=== PATIENT | female | born 1960 | race Caucasian/White ===

== ENCOUNTER 2018-09-18 00:57 | Outpatient (CLI) | payer BC, SELFPAY ==
--- NOTE | 2018-09-18 10:00 | DI.MAMMO_ITS ---
SYMPTOMS/DIAGNOSIS: SCREENING, Z12.31 MAMMOGRAM: Mammograms were interpreted according to the usual protocol including computer analysis with CAD system, tomosynthesis and C view imaging. Comparison is made with prior examinations. Breast density C. No suspicious masses or microcalcifications are seen. The nodular density in the outer left breast appears stable. The skin and axilla are unremarkable. IMPRESSION: No evidence for malignancy. Yearly mammography is recommended. Category 2. MQSA ASSESSMENT OF FINDINGS: Negative with benign findings. Category 2. Patient will receive a letter notifying them of these results. Bi-RADS category C. The breasts are heterogeneously dense, which may obscure small masses.
== END 2018-09-18 01:17 ==
PROVIDERS: PCP Nurse Practitioner Family; Visit Provider Nurse Practitioner Family
DX: Z12.31 Encounter for screening mammogram for malignant neoplasm of breast (principal)
CPT/HCPCS: 77063; 77067

== ENCOUNTER 2019-01-20 06:18 | Day surgery (SDC) | payer BC, SELFPAY ==
--- NOTE | 2019-01-20 06:20 | W.COLOREPORT ---
Date of service: 01/20/19 Time of Service: 07:35 Colonoscopy Report Date of procedure: 01/20/19 Pre-op diagnosis general: Hx of polyps Post-op diagnosis procedure note: same Procedure: Colonoscopy with polypectomy Surgeon: Minnie Owens Anesthesia proc note operative: other (General/ ASA 2/Clay Cho, MARI) Estimated blood loss (mL): 3 Pathology: other (Transverse colon polyp x2, Ascending colon polyp x3) Complications: None Disposition: same day Indications: Mrs. Sanchez is a pleasant 58 year old female seen in the office for a screening colonoscopy. She has a history of polyps in the past. Risks, benefits and complications have been reviewed. Complications include but are not limited to bleeding, pain, perforation, missed small lesion/polyp, sore throat, aspiration and adverse reaction to the medications. Questions were entertained and answered to their satisfaction and they wished to proceed. No guarantees were given or implied. Prep: Miralax/Dulcolax Procedure Start Time: 07:35 Procedure End Time: 08:01 Retraction Time: 19 minutes Findings: Multiple sessile polyps, 4 were <10 mm in size. One was 10 mm Mild diverticulosis Procedure Description: After informed consent was obtained the patient was taken to the procedure room and placed in a left decubitous position. Monitors were applied and a time out was done. The patients name, date of , procedure, allergies to medications and metal in their body was reviewed. The patient was then sedated. Once sedated and comfortable a rectal exam was done. External exam was normal. Internal exam revealed a normal sphincter tone and no palpable masses. The scope was then introduced and retro-flexed. No internal hemorrhoids, masses or polyps were identified. The scope was then advanced to the cecum without difficulty. The TI and appendiceal orifice were identified. The prep was good. The scope was then slowly retracted over 19 minutes back into the rectum. Polyps were removed with cold forceps in the ascending colon x3 and the transverse colon x2. There was mild diverticulosis noted in the descending and sigmoid colon. The scope was removed and the patient was woken up and taken back to Same day surgery in stable condition. The patient tolerated the procedure well and there were no immediate complications. Follow up: The patient should follow up in 3-5 years unless they develop changes in bowel habits or other new gastrointestinal complaints.
--- NOTE | 2019-01-20 06:21 | W.PM.DSUDISC ---
Discharge Plan Disposition Patient Disposition: HOME Condition: Good Discharge Details Reason For Visit: Hx of polyps Attending Provider: Minnie Owens Primary Care Provider: Viri Cisneros Home Meds and New Rx's Prescriptions: Continued estradiol 1 mg tablet 1 mg PO DAILY RF: 0 acetaminophen [Tylenol Extra Strength] 500 MG tablet 1,000 mg PO Q6H PRN RF: 0 albuterol sulfate [ProAir HFA] 90 mcg/actuation HFA aerosol inhaler 1 - 2 inh Inhalation .Q4-6H PRN (Reason: shortness of breath or wheezing) Qty: 1 RF: 3 vit D3-folic [id number]-B12 2,000-800-0.32 unit-mcg-mg Tablet 1 tab PO DAILY RF: 0 Discontinued polyethylene glycol 3350 17 gram/dose powder 238 g PO ONCE Qty: 238 RF: 0 bisacodyl [Dulcolax (bisacodyl)] 5 mg tablet,delayed release (DR/EC) 5 mg PO ONCE Qty: 4 RF: 0 Discharge Instructions Instructions: Colonoscopy (DC), Diverticulosis (GEN), Colorectal Polyps (DC) Additional Instructions: Findings: 5 polyps Diverticulosis Follow up: 3-5 years Please call if you develop: fevers >101.5 Nausea or Vomiting Abdominal pain that is not transient DAY SURGERY UNIT POST ENDOSCOPY INSTRUCTIONS 1. Because there will be medication in your system for the next 24 hours, you may feel a little sleepy. Your coordination will be affected. Therefore: a. Do not drive or operate dangerous equipment for 24 hours. b. Do not drink alcohol beverages for 24 hours (not even beer). c. Plan to go home and rest for the day. 2. Generally there are no restrictions on your activity after a day or so has gone by, but you may feel a bit fatigued for a few days. 3 After you arrive home you may have a light meal and return to a normal diet as you can tolerate it without feeling sick to your stomach. 4. After surgery, you may feel pain or discomfort. This should be only transient, but if it persists please contact your doctor. 5. If there are any questions regarding the findings of your procedure, please feel free to contact your doctor. 6. If you are unable to contact your doctor with a problem, contact the hospital at [phone]. 7. Continue all your regular medications unless directed otherwise. I understand the above instructions and have no questions. Signature of Patient or Responsible Adult Escort Date/Time Name of Responsible Adult Escort Signature of Nurse Date/Time Activity:: Activity as Tolerated Diet:: High Fiber diet Discharge Orders Discharge Orders: Discharge Order (Routine); Ordered 01/20/19 Ordered By: Minnie Owens DS: Diagnosis Discharge Diagnosis (1) S/P colonoscopy: Status: Acute (2) Diverticulosis: Status: Acute (3) Hx of colonic polyps: Status: Acute
--- NOTE | 2019-01-20 06:23 | W.PM.HP.N ---
Date of service: 01/20/19 Time of Service: 06:24 Assessment and Plan Assessment and plan (1) Hx of colonic polyps: Status: Acute Assessment and plan: (1) History of colonic polyps: The patient is here for Colonoscopy pre-op. Her last screening was in 2012 and was remarkable for adenomatous polyps. She has no family history of colon cancer. She has not had any bowel habit changes. -Discussed colonoscopy bowel prep as well as the procedure. Discussed possible complications of the procedure to include bleeding, pain, perforation, missed small lesion/polyp, sore throat, aspiration and adverse reaction to the medications. Questions were answered to patient?s satisfaction. No guarantees were implied or given. P// Colonoscopy under sedation. History of Present Illness Narrative: 58 y/o female with history of asthma presents for colonoscopy screening pre-op. Her last screening was in 2012, which was remarkable for adenomatous polyps. She denies a family history of colon cancer. She denies any changes in bowel habits including bloody or black tarry stools, abdominal pain, diarrhea or constipation. She denies constitutional symptoms. She reports use of marijuana a few times a month. Denies use of other recreational or illegal drugs. She denies chest pain, palpitations, dyspnea or dyspnea with exertion. She participates in strength training 2 days/wk and Bar flexibility training 2 days/wk. She denies prior history or family history of adverse reactions or complications with anesthesia. She denies having any implanted metal in her body. There have been no changes in her health since she was seen in the office in November Review of Systems Constitutional Constitutional: Denies fever(s) Cardiovascular Cardiovascular: Denies chest pain, Denies chest pain at rest, Denies chest pain with activity, Denies rapid heart rate, Denies palpitations, Denies dyspnea and Denies dyspnea on exertion Respiratory Respiratory: Denies cough, Denies dyspnea and Denies dyspnea on exertion Gastrointestinal Gastrointestinal: Reports as per HPI Endocrine Endocrine: Denies palpitations [facility] Medical History Adenoma of large intestine (Inactive 06/12/12) next 2018 Anxiety (Resolved 08/03/11) Asthma Asthma (Chronic 05/22/13) Spirometry 2008, mild obstructive airway disease Prednisone 2013 History of nicotine dependence (Chronic) Quit 2014 Primary osteoarthritis of right knee (Chronic 05/31/16) [facility] Tobacco use disorder (Resolved) QUIT 2014 (1 PPD x 20 years= 20 PY); Zyban, hypnotism Surgical History Arthroscopy (Resolved 02/21/15) Dr Walker [facility] [place] R elbow Cholecystectomy (Resolved) Endometrial Biopsy (Resolved 07/25/15) S/P colonoscopy (Acute ~01/20/19) 2012- adenomatous polyp Tubal Ligation, Laparoscopic (Resolved) Family History Mother Hypertension Decreased due to brain aneurysm 44 y/o Father Heart disease due to heart issues 80s Cancer Throat cancer (smoker) Social History Smoking/Tobacco Use Status: Former Tobacco Use Quit Date: 03/11/14 Pack-years: 20 Second Hand Exposure: Yes Alcohol Intake: current Alcohol Intake frequency: a few times a week Alcohol type: hard liquor Drug use: Never Substance use type: does not use Caregiver/Support person: No Household members: spouse Number of Children: 3 Communication Needs: None Education Level: college Details: Associates degree 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 Sexually active: Yes Current gender identity: female What type of physical activity do you participate in: weight lifting and resistance training Duration: 45-60 minutes/day Frequency: 3-4 times per week Seatbelt use: always Helmet use: Yes Drive intox or ride w/intox pole truck driver: No Water heater temp set <120 deg: Yes Working smoke detector in home: Yes Fire extinguisher in home: Yes Carbon monox detector in home: Yes Firearms in home: No Do you feel safe at home: Yes Do you feel safe in your relationship?: Yes Meds Home Medications and Allergies Home Medications Medication Instructions Recorded Confirmed Type acetaminophen [Tylenol Extra 1,000 mg PO Q6H PRN tab-cap 02/09/15 01/15/19 History Strength] albuterol sulfate 90 mcg/actuation 1 - 2 inh INHALATION .Q4-6H PRN #1 09/08/18 01/15/19 Rx aerosol inhaler unit estradiol 1 mg tablet 1 mg PO DAILY 09/08/18 01/15/19 History Allergies Allergy/AdvReac Type Severity Reaction Status Date / Time formaldehyde Allergy Intermediate Unverified 01/15/19 15:05 Exam Const General: cooperative, healthy appearing, comfortable and no acute distress Orientation: alert and oriented x3 HENMT Head: normocephalic and atraumatic Resp Effort & Inspection: normal respiratory effort Auscultation: clear to auscultation bilaterally Cardio Rate: regular rate Rhythm: regular rhythm Heart Sounds: no gallops, no murmurs and no rubs
[2019-01-20 06:36] VITALS: BP 111/62; PULSE 64; RESP 16; TEMP 36.5; O2SAT 98
[2019-01-20] MEDS: Lactated Ringers 1,000 ML 80 ML IV (06:45)
--- NOTE | 2019-01-20 07:40 | BOWEL_PTH ---
PATIENT: Melia Sanchez LOC: [facility] U#:[id number] AGE/SX: 58/F ROOM: RE01/20/[address]: Minnie Owens MD : 1960 BED: DIS: 01/20/2019 SPEC #: [id number] RECD: 01/20/19 12:23 STATUS: LUIS FELIPE REQ #: [id number] BRENDA: 01/20/19 07:[address]: Minnie Owens DEPT: Surgical Specimen RECD BY: Dinorah Bob ENTERED: 01/20/19 12:24 SP TYPE: Bowel OTHR DR: Viri Cisneros APRN Tissues: 1 - BIOPSY BOWEL 2 - BIOPSY BOWEL Procedures: GROSS AND MICRO LEVEL 4 Comments: [id number]
[2019-01-20 08:25] VITALS: BP 125/72; PULSE 62; RESP 16; TEMP 36; O2SAT 99
== END 2019-01-20 09:10 | disposition home or self-care (01) ==
PROVIDERS: PCP Nurse Practitioner Family; Visit Provider Surgery
PROC: 0DJD8ZZ Inspection of Lower Intestinal Tract, Via Natural or Artificial Opening Endoscopic (ICD-10-PCS; CPT 45378; principal; 2019-01-20 07:30)
DX: Z12.11 Encounter for screening for malignant neoplasm of colon (principal); Z86.010 Personal history of colon polyps; D12.2 Benign neoplasm of ascending colon; D12.3 Benign neoplasm of transverse colon; K57.30 Diverticulosis of large intestine without perforation or abscess without bleeding
CPT/HCPCS: 45380; 88305; NC; J2250; J3010

== ENCOUNTER 2019-02-18 14:01 | Emergency (ER) | payer BC, SELFPAY ==
[2019-02-18] VITALS (18 sets, daily range): BP systolic 114–149; BP diastolic 65–92; PULSE 57–76; RESP 10–24; TEMP 36.7; O2SAT 100
--- NOTE | 2019-02-18 14:24 | W.ED.GENAD ---
Discharge Plan Disposition Patient Disposition: HOME Condition: Good Discharge Details Chief Complaint: Palpitatns Clinical Impression: Palpitation Primary Care Provider: Viri Cisneros ED Provider: Merle Loving Home Meds and New Rx's Prescriptions: Continued estradiol 1 mg tablet 1 mg PO DAILY RF: 0 albuterol sulfate [ProAir HFA] 90 mcg/actuation HFA aerosol inhaler 1 - 2 inh Inhalation .Q4-6H PRN (Reason: shortness of breath or wheezing) Qty: 1 RF: 3 Discharge Instructions Instructions: Palpitations (ED) Additional Instructions: Drink plenty of fluids and get plenty of rest. Call your primary care doctor tomorrow to schedule a follow-up appointment for reevaluation within the next week. Your doctor can consider ordering an outpatient stress test if your symptoms persist. Your primary care doctor could also consider checking a vitamin B12 and/or TSH regarding your recent fatigue. Return to the emergency department if you develop any worsening or concerning symptoms. Discharge Data Discharge Date/Time-TO BE ENTERED AT DEPARTURE: 02/18/19 18:55 Discharge Physician: Merle Loving Medical Decision Making 1415 -- 59-year-old female with a history of asthma and anxiety presents with an episode of shortness of breath this morning followed by profound fatigue and then an episode of feeling jittery for approximately 30 minutes which then resolved. Patient denies any symptoms at present other than feeling fatigued. EKG on arrival notes a rate of 64, sinus with questionable less than [address] depression in V3 through V6. No acute ST elevation. Vitals within normal limits. Patient appears comfortable and nontoxic. She appears pleasant and talkative. Vitals within normal limits. Heart rate normal on monitor during evaluation. Differential diagnosis includes arrhythmia, ACS, dehydration, anxiety. Will place an IV, bolus IV fluids, screening labs, chest x-ray. 1540 --labs reviewed and unremarkable. Normal white blood cell count, electrolytes. Negative d-dimer and troponin. Chest x-ray negative. 1625 --patient states she feels much better. Denies any symptoms at present. We will plan for repeat troponin and ekg for 1730. 1800 --repeat EKG notes resolution of this questionable less than [address] depression, rate of 57, sinus with no acute ST-T wave ischemic changes. Second troponin negative. Patient feels much better and feels good to go home. Pt asymptomatic. She was advised to follow-up with her primary care doctor for reevaluation. Usual and customary return precautions given prior to discharge. Medical Records Medical records reviewed: Yes I reviewed the patient's medical records. Imaging Data Radiologic Study: Radiologist's impression: XR CHEST 2V PA LATERAL CLINICAL HISTORY: palpitations, r/o acute disease. TECHNIQUE: 2D digital imaging was performed. COMPARISON: No exams were available for comparison FINDINGS: LUNGS: Clear. No pleural abnormality seen. HEART: Normal. MEDIASTINUM: Normal. OTHER FINDINGS:Normal. IMPRESSION: No acute pulmonary findings. Lab Data Lab results reviewed: Yes I reviewed the patient's lab results. Labs: Laboratory Tests Range/Units 02/18/19 02/18/19 02/18/19 14:25 14:25 14:25 WBC (4.4-10.8) k/cumm 7.47 RBC (4.00-5.20) m/cumm 4.99 Hgb (12.0-15.5) g/dL 15.2 Hct (36.0-46.0) % 45.0 MCV (80-95) fL 90.2 MCH (27.0-33.0) pg 30.5 MCHC (32.0-36.0) g/dL 33.8 RDW (11.7-14.6) % 13.4 Plt Count (130-400) x1000/uL 295 MPV (8.0-11.0) fL 9.1 Immature Gran % 0.0 Neutrophils % 43.1 Lymphocytes % 41.1 Monocytes % 10.7 Eosinophils % 4.6 Basophils % 0.5 Absolute Neutrophils (1.2-6.7) k/cumm 3.22 Absolute Lymphocytes (1.2-3.4) k/cumm 3.07 Absolute Monocytes (0.11-0.7) k/cumm 0.80 H Absolute Eosinophils (0.0-0.7) k/cumm 0.34 Absolute Basophils (0.0-0.2) k/cumm 0.04 D-Dimer (<500) ng/mlFEU 316 Sodium (136-145) mmol/L 140 Potassium (3.5-5.1) mmol/L 3.4 L Chloride (98-107) mmol/L 102 Carbon Dioxide (21.0-32.0) mmol/L 28.2 Anion Gap (3-11) mmol/L 9.8 BUN (7-18) mg/dL 12 Creatinine (0.55-1.02) mg/dL 0.97 Estimated GFR/1.73 m2 (mL/min/1.73m2) 58.98 Glucose (74-106) mg/dL 114 H Calcium (8.5-10.1) mg/dL 9.4 Magnesium (1.8-2.4) mg/dL Total Bilirubin (0.2-1.0) mg/dL 0.4 AST (15-37) U/L 20 ALT (14-59) U/L 29 Alkaline Phosphatase (46-116) U/L 58 Troponin I (<0.06) ng/Ml Total Protein (6.4-8.2) g/dL 8.3 H Albumin (3.4-5.0) g/dL 4.3 Urine Color (Yellow) Urine Clarity (Clear) Urine pH (5-8) Ur Specific [place] (1.005-1.025) Urine Protein (Negative) mg/dL Urine Ketones (Negative) mg/dL Urine Blood (Negative) Urine Nitrite (Negative) Urine Bilirubin (Negative) Urine Urobilinogen (Up TO 0.2) EU/dL Ur Leukocyte Esterase (Negative) Urine Glucose (Negative) mg/dL Range/Units 02/18/19 02/18/19 02/18/19 14:25 14:25 15:40 WBC (4.4-10.8) k/cumm RBC (4.00-5.20) m/cumm Hgb (12.0-15.5) g/dL Hct (36.0-46.0) % MCV (80-95) fL MCH (27.0-33.0) pg MCHC (32.0-36.0) g/dL RDW (11.7-14.6) % Plt Count (130-400) x1000/uL MPV (8.0-11.0) fL Immature Gran % Neutrophils % Lymphocytes % Monocytes % Eosinophils % Basophils % Absolute Neutrophils (1.2-6.7) k/cumm Absolute Lymphocytes (1.2-3.4) k/cumm Absolute Monocytes (0.11-0.7) k/cumm Absolute Eosinophils (0.0-0.7) k/cumm Absolute Basophils (0.0-0.2) k/cumm D-Dimer (<500) ng/mlFEU Sodium (136-145) mmol/L Potassium (3.5-5.1) mmol/L Chloride (98-107) mmol/L Carbon Dioxide (21.0-32.0) mmol/L Anion Gap (3-11) mmol/L BUN (7-18) mg/dL Creatinine (0.55-1.02) mg/dL Estimated GFR/1.73 m2 (mL/min/1.73m2) Glucose (74-106) mg/dL Calcium (8.5-10.1) mg/dL Magnesium (1.8-2.4) mg/dL 2.1 Total Bilirubin (0.2-1.0) mg/dL AST (15-37) U/L ALT (14-59) U/L Alkaline Phosphatase (46-116) U/L Troponin I (<0.06) ng/Ml < 0.05 Total Protein (6.4-8.2) g/dL Albumin (3.4-5.0) g/dL Urine Color (Yellow) Yellow Urine Clarity (Clear) Clear Urine pH (5-8) 6.0 Ur Specific [place] (1.005-1.025) 1.010 Urine Protein (Negative) mg/dL Negative Urine Ketones (Negative) mg/dL Negative Urine Blood (Negative) Negative Urine Nitrite (Negative) Negative Urine Bilirubin (Negative) Negative Urine Urobilinogen (Up TO 0.2) EU/dL 0.2 Ur Leukocyte Esterase (Negative) Negative Urine Glucose (Negative) mg/dL Negative Range/Units 02/18/19 17:25 WBC (4.4-10.8) k/cumm RBC (4.00-5.20) m/cumm Hgb (12.0-15.5) g/dL Hct (36.0-46.0) % MCV (80-95) fL MCH (27.0-33.0) pg MCHC (32.0-36.0) g/dL RDW (11.7-14.6) % Plt Count (130-400) x1000/uL MPV (8.0-11.0) fL Immature Gran % Neutrophils % Lymphocytes % Monocytes % Eosinophils % Basophils % Absolute Neutrophils (1.2-6.7) k/cumm Absolute Lymphocytes (1.2-3.4) k/cumm Absolute Monocytes (0.11-0.7) k/cumm Absolute Eosinophils (0.0-0.7) k/cumm Absolute Basophils (0.0-0.2) k/cumm D-Dimer (<500) ng/mlFEU Sodium (136-145) mmol/L Potassium (3.5-5.1) mmol/L Chloride (98-107) mmol/L Carbon Dioxide (21.0-32.0) mmol/L Anion Gap (3-11) mmol/L BUN (7-18) mg/dL Creatinine (0.55-1.02) mg/dL Estimated GFR/1.73 m2 (mL/min/1.73m2) Glucose (74-106) mg/dL Calcium (8.5-10.1) mg/dL Magnesium (1.8-2.4) mg/dL Total Bilirubin (0.2-1.0) mg/dL AST (15-37) U/L ALT (14-59) U/L Alkaline Phosphatase (46-116) U/L Troponin I (<0.06) ng/Ml < 0.05 Total Protein (6.4-8.2) g/dL Albumin (3.4-5.0) g/dL Urine Color (Yellow) Urine Clarity (Clear) Urine pH (5-8) Ur Specific [place] (1.005-1.025) Urine Protein (Negative) mg/dL Urine Ketones (Negative) mg/dL Urine Blood (Negative) Urine Nitrite (Negative) Urine Bilirubin (Negative) Urine Urobilinogen (Up TO 0.2) EU/dL Ur Leukocyte Esterase (Negative) Urine Glucose (Negative) mg/dL ECG Data Attestation: I personally reviewed and interpreted this ECG (s) as follows: Interpretation: #1 --Rate of 64, sinus, questionable/subtle less than [address] depression noted in V4 through V6. No acute ST elevation. SD 118. QTc 413. QRS 104. #2 --Rate of 57, sinus, no acute ST elevation or depression. SD 132. QTc 421. QRS 102. HPI General Mode of arrival: ambulatory. Date/Time Provider Initiated Documentation: 02/18/19 14:05. Limitations to Documentation: no limitations. Information obtained by: patient. HPI Narrative: Patient is a 59-year-old female with a history of asthma and anxiety presents with an episode of shortness of breath followed by fatigue and then a feeling of jitteriness at started since this morning. Patient states she went to the gym to start working out and shortly after became short of breath. She left the gym and went home and used her inhaler and had improvement of her shortness of breath. She states after this episode she felt profoundly fatigued and generalized weakness. She states that she then had a feeling of jitteriness that lasted approximately 30 minutes. She states the symptoms are now mainly resolved except for feeling fatigued. She states she drank 2 cups of coffee and ate 1 muffin and drank 16 ounces of water today. She states she normally has this amount of coffee daily but usually eats more around this time. She now states that she has felt generalized weakness and fatigue for the past few weeks. She states she has not been sleeping well but she is not sure why. She states her appetite has been normal. She denies any known fever, vomiting, diarrhea, chest pain, abdominal pain, urinary symptoms. Related Data Home Medications Medication Instructions Recorded Confirmed albuterol sulfate 90 mcg/actuation 1 - 2 inh INHALATION .Q4-6H PRN #1 09/08/18 02/18/19 aerosol inhaler unit estradiol 1 mg tablet 1 mg PO DAILY 09/08/18 02/18/19 Previous Rx's Medication Instructions Recorded albuterol sulfate 90 mcg/actuation 1 - 2 inh INHALATION .Q4-6H PRN #1 09/08/18 aerosol inhaler unit Allergies Allergy/AdvReac Type Severity Reaction Status Date / Time formaldehyde Allergy Intermediate Unverified 02/19/19 10:37 General Stated Complaint: Palpitatns ANNABELLA: 2 Review of Systems All systems reviewed & are unremarkable except as noted in HPI and below Constitutional Constitutional: Reports as per HPI, Denies chills, Reports fatigue and Denies fever(s) Eyes Eyes: Denies blurry vision ENT Ears, Nose, Mouth, and Throat: Denies dizziness, Denies sore throat and Denies throat swelling Cardiovascular Cardiovascular: Denies chest pain and Reports dyspnea Respiratory Respiratory: Denies cough and Reports dyspnea Gastrointestinal Gastrointestinal: Denies abdominal pain, Denies diarrhea and Denies vomiting Genitourinary Genitourinary: Denies hematuria and Denies dysuria Musculoskeletal Musculoskeletal: Denies back pain and Denies numbness Integumentary/Breasts Skin/Breast: Denies lesions and Denies rash Neurologic Neurologic: Denies dizziness, Denies focal weakness and Denies numbness Endocrine Endocrine: Reports fatigue Allergic/Immunologic Allergic/Immunologic: Denies throat swelling [facility] Medical History Adenoma of large intestine (Inactive 06/12/12) next 2018 Anxiety (Resolved 08/03/11) Asthma Asthma (Chronic 05/22/13) Spirometry 2008, mild obstructive airway disease Prednisone 2013 Diverticulosis (Acute) History of nicotine dependence (Chronic) Quit 2014 Hx of contraceptive use (Acute) mirena Primary osteoarthritis of right knee (Chronic 05/31/16) [facility] Tobacco use disorder (Resolved) QUIT 2014 (1 PPD x 20 years= 20 PY); Zsangeetha, hypnotism Surgical History Arthroscopy (Resolved 02/21/15) Dr [place] [facility] Cholecystectomy (Resolved) Endometrial Biopsy (Resolved 07/25/15) S/P colonoscopy (Acute ~01/20/19) 2012- adenomatous polyp Tubal Ligation, Laparoscopic (Resolved) Family History Mother Hypertension Decreased due to brain aneurysm 44 y/o Father Heart disease due to heart issues 80s Cancer Throat cancer (smoker) Social History Smoking/Tobacco Use Status: Former Tobacco Use Quit Date: 03/11/14 Pack-years: 20 Second Hand Exposure: Yes Alcohol Intake: current Alcohol Intake frequency: a few times a week Alcohol type: hard liquor Drug use: Occasionally Substance use type: marijuana Details: alcohol: t-2, one drink. 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 Water heater temp set <120 deg: Yes Working smoke detector in home: Yes Fire extinguisher in home: Yes Carbon monox detector in home: Yes Firearms in home: No Do you feel safe at home: Yes Do you feel safe in your relationship?: Yes Exam Const General: cooperative, healthy appearing and no acute distress HENMT Head: normal to inspection Face and sinus: normal facial exam Eyes General: appearance normal, both eyes and all related structures Pupils: PERRL EOM: EOM intact bilaterally Neck Neck: normal visual inspection and No submandibular swelling Lymphatic: no lymphadenopathy noted Chest Chest: normal inspection of the chest and no tenderness Resp Effort & Inspection: normal respiratory effort and able to speak in complete sentences Auscultation: clear to auscultation bilaterally Cardio Rate: regular rate Rhythm: regular rhythm GI Inspection: normal to inspection Palpation: soft, not firm, not rigid and nontender Auscultation: normal bowel sounds Skin General skin exam: no rashes or lesions noted Neuro General: alert, awake and oriented x3 Cranial Nerves: CN's II-XI intact bilaterally Cognition: normal cognition Speech: speech normal Motor: muscle tone normal throughout and strength 5/5 throughout Sensory Exam: no sensory deficits noted Extrem General: normal to inspection, full ROM, normal capillary refill, no calf tenderness bilaterally and no edema Psych Appearance: grossly normal Mental Status: mental status grossly normal Speech and Movement: speech and movement normal Affect: normal affect Course Vital Signs Vital signs: Vital Signs Temperature 98.1 F 02/18/19 14:04 Pulse 76 02/18/19 14:04 Respiratory Rate 21 02/18/19 14:04 Blood Pressure 149/72 H 02/18/19 14:04 Pulse Oximetry 100 02/18/19 14:04 Temperature 98.1 F 02/18/19 14:04 Temperature Source Skin 02/18/19 14:04 Pulse 76 02/18/19 14:04 Respiratory Rate 21 02/18/19 14:04 Respiratory Effort 02/18/19 14:21 Blood Pressure 149/72 H 02/18/19 14:04 Blood Pressure Position Sitting 02/18/19 14:04 Pulse Oximetry 100 02/18/19 14:04 Oxygen Delivery Method Room Air 02/18/19 14:04 Oxygen Flow Rate 0 02/18/19 14:04 Pain Level 0 02/18/19 14:04
[2019-02-18 14:35] LABS: Absolute Basophil Count 0.04 k/cumm (0.0-0.2); Absolute Eosinophil Count 0.34 k/cumm (0.0-0.7); Absolute Lymphocyte Count 3.07 k/cumm (1.2-3.4); Absolute Neutrophil Count 3.22 k/cumm (1.2-6.7); Basophils % 0.5; Eosinophils % 4.6; HGB 15.2 g/dL (12.0-15.5); Lymphocytes % 41.1; Mean Corp. HGB Concentration 33.8 g/dL (32.0-36.0); Mean Corpuscular Hemoglobin 30.5 pg (27.0-33.0); Mean Corpuscular Volume 90.2 fL (80-95); Mean Platelet Volume 9.1 fL (8.0-11.0); Monocytes % 10.7; Neutrophils % 43.1; Platelet Count 295 x1000/uL (130-400); RBC 4.99 m/cumm (4.00-5.20); RBC Distribution Width 13.4 % (11.7-14.6); White Blood Cell Count 7.47 k/cumm (4.4-10.8)
[2019-02-18] MEDS: Normal Saline 1,000 ML 1000 ML IV (14:37)
[2019-02-18 14:51] LABS: ALT 29 U/L (14-59); AST 20 U/L (15-37); Albumin 4.3 g/dL (3.4-5.0); Alkaline Phosphatase 58 U/L (46-116); Anion Gap 9.8 mmol/L (3-11); BUN 12 mg/dL (7-18); Bilirubin, Total 0.4 mg/dL (0.2-1.0); CO2 28.2 mmol/L (21.0-32.0); CREATININE 0.97 mg/dL (0.55-1.02); Calcium 9.4 mg/dL (8.5-10.1); Chloride 102 mmol/L (98-107); Estimated GFR 58.98 (mL/min/1.73m2); Glucose 114 mg/dL (74-106); Magnesium 2.1 mg/dL (1.8-2.4); Potassium 3.4 mmol/L (3.5-5.1); Sodium 140 mmol/L (136-145); Total Protein 8.3 g/dL (6.4-8.2)
[2019-02-18 14:52] LABS: Troponin I < 0.05 ng/Ml (<0.06)
--- NOTE | 2019-02-18 15:04 | DI.RAD_ITS ---
EXAM: XR CHEST 2V PA LATERAL CLINICAL HISTORY: palpitations, r/o acute disease. TECHNIQUE: 2D digital imaging was performed. COMPARISON: No exams were available for comparison FINDINGS: LUNGS: Clear. No pleural abnormality seen. HEART: Normal. MEDIASTINUM: Normal. OTHER FINDINGS:Normal. IMPRESSION: No acute pulmonary findings.
[2019-02-18 15:16] LABS: D-Dimer 316 ng/mlFEU (<500)
[2019-02-18 16:00] LABS: Bilirubin Negative (Negative); Blood Negative (Negative); Clarity Clear (Clear); Glucose Negative (Negative); Ketones Negative (Negative); Leukocyte Esterase Negative (Negative); Nitrite Negative (Negative); Urobilinogen 0.2 EU/dL (Up TO 0.2)
[2019-02-18 17:53] LABS: Troponin I < 0.05 ng/Ml (<0.06)
== END 2019-02-18 18:55 | disposition home or self-care (01) ==
PROVIDERS: Emergency Provider Physician Assistant; PCP Nurse Practitioner Family
DX: R00.2 Palpitations (principal); R06.02 Shortness of breath; R53.83 Other fatigue
CPT/HCPCS: 36415; 80053; 93005; 96360; 96361; 99285; 71046; 81003; 83735; 84484; 85025; 85379; 93010

== ENCOUNTER 2019-02-26 00:22 | Outpatient (CLI) | payer BC, SELFPAY ==
--- NOTE | 2019-02-26 08:31 | ETT_ITS ---
APPROVED REPORT Exam: Exercise Treadmill Patient Location: Out-Patient Room/Bed: Stress Nurse: Georgia Clarke RN BMI: 27.56 Baseline Rhythm: Sinus Bradycardia Indications: Last week patient was at exercise class when she became very SOB, left class and went ho me to use her Albuteral inhaler. She states she felt very tired the rest of that day and also felt ve ry tremulous inside from head to toe. She reports having 1 mild similar episode since. She reports mi ld SOB upon arrival to testing today. Medical History Medical History: Anxiety Cardiac Medications: None, Allergies: Formaldehyde Cardiac Risk Factors: FHX of CAD, Asthma Previous Cardiac Procedures: None Pretest Chest Pain Characteristics: Slight Shortness of Breath Exercise History: Physically active Physical Disabilities: None Lung Sounds: Clear to auscultation Heart Sounds: Regular Stress Test Details Test: Exercise stress testing was performed using a Blake protocol. Rest Stress HR Max Heart Rate (APMHR): 162 bpm Resting HR Supine: 58 bpm Target HR (85% APMHR): 137 bpm Resting HR Standin bpm Max HR Achieved: 158 bpm % of APMHR: 97 HR response to stress: Normal HR response to stress BP Resting BP Supine: 120/68 mmHg Resting BP Standin/70 mmHg Max BP: 160/84 mmHg BP response to stress: Normal blood pressure response to stress. ECG Resting ECG: Sinus Bradycardia ST Change: none Stress ECG: Sinus Tachycardia ST Change: Normal Arrhythmia: none Recovery ECG: Sinus Rhythm Recovery ST Change: none Clinical Reason for Termination: Fatigue Stress Symptoms: None Exercise duration: 10 min24 sec Highest Stage Achieved: Stage 4: 4.2 mph at 16% grade. Exercise capacity: 12.45 METs Functional Capacity: Average Capacity Stress ECG Conclusion 1. Patient exercised for 10 minutes and 24 seconds (12.45 METS) 2. Exercise was stopped due to fatigue. 3. Rate-pressure product was 25,000. 4. There was no evidence of ischemia on ECG during this level of stress. 5. The Mckeon Score (10) estimates an annual cardiovascular mortality of 0% and a five year survival of 96%. Using the Mckeon Score there is a low probability of any angiographic coronary disease. Protocol Used: Blake Protocol Stress Test Summary STAGE Time (mins) Speed (mph) Grade (%) HR BP SYMPTOMS METS Supine 58 Standing 72 1 3 1.7 10 96 4.6 2 6 2.5 12 113 7 3 9 3.4 14 138 10.2 4 12 4.2 16 12.9 5 15 5.0 18 17.2 1 min recovery 129 3 min recovery 99 6 min recovery 83 9 min recovery 81
[2019-02-26 10:57] LABS: Calculated LDL 200 mg/dL; Cholesterol 280 mg/dL (<200); HDL Cholesterol 64 mg/dL (40-60); Triglyceride 83 mg/dL (<150)
[2019-02-26 14:06] LABS: TSH (W/Ref FT4) 4.99 uIU/mL (0.36-3.74)
[2019-02-27 11:42] LABS: Hepatitis C Ab w Rflx HCV PCR Negative (Negative)
[2019-02-27 11:43] LABS: HIV-1/2 Ag & Ab Screen Negative (Negative)
== END 2019-02-26 00:42 ==
PROVIDERS: Nurse Practitioner Family; PCP Nurse Practitioner Adult Health; Visit Provider Nurse Practitioner Adult Health
DX: R06.02 Shortness of breath (principal); E78.5 Hyperlipidemia, unspecified; Z82.49 Family history of ischemic heart disease and other diseases of the circulatory system; Z11.4 Encounter for screening for human immunodeficiency virus [HIV]; Z11.59 Encounter for screening for other viral diseases
CPT/HCPCS: 36415; 80061; 86803; 87389; 84439; 84443; 93017

== ENCOUNTER 2019-03-05 00:38 | Outpatient (CLI) | payer BC, SELFPAY ==
--- NOTE | 2019-03-05 16:06 | DI.CTLCSR_ITS ---
EXAM: CT CHEST LUNG CANCER SCREEN CLINICAL HISTORY: SCREENING FOR LUNG CANCER Z12.2, Z87.891 PERS HX NICOTINE DEPENDENCE TECHNIQUE: Imaging protocol: Axial computed tomography images were obtained and coronal and sagittal reformatted images were created and reviewed. CONTRAST MATERIAL: Intravenous: Omnipaque 350 Contrast volume:0 mL contrast route:IV - Oral: No COMPARISON: No exams were available for comparison FINDINGS: Tracheobronchial tree: Patent where visualized. Mediastinum and [place]: No dominant adenopathy or fluid collection. Pulmonary parenchyma: No consolidation or dominant measurable mass. No architectural distortion. Pleura: No effusion or pneumothorax. Heart/Aorta: Atherosclerosis. Aneurysm. The heart is not dilated. Mild coronary artery calcificatio n. No pericardial effusion. Upper abdomen: Status post cholecystectomy. Lymph nodes: Within normal limits. Bones: Degenerative changes present. IMPRESSION: No pulmonary nodules. Lung RADS Cat 1 - Negative: No nodules and definitely benign nodules DATA REPOSITORY: All CT scans at this facility are submitted to the National Radiology Data Registry (NRDR) Dose Index Registry (DIR) with the [employer] (ACR). RADIATION OPTIMIZATION: All CT scans at this facility use at least one of these dose optimization te chniques: automated exposure control; mA and/or kV adjustment per patient size (includes targeted exa ms where dose is matched to clinical indication); or iterative reconstruction.
== END 2019-03-05 00:58 ==
PROVIDERS: PCP Nurse Practitioner Adult Health; Visit Provider Nurse Practitioner Adult Health
DX: Z12.2 Encounter for screening for malignant neoplasm of respiratory organs (principal); Z87.891 Personal history of nicotine dependence
CPT/HCPCS: G0297

== ENCOUNTER 2019-08-31 15:04 | Outpatient (CLI) | payer BC, SELFPAY ==
--- NOTE | 2019-08-31 14:30 | DI.RAD_ITS ---
EXAM: XR HIP RT COMPLETE AP PELVIS INDICATION: RIGHT HIP PAIN. COMPARISON: No exams were available for comparison TECHNIQUE: 2D digital imaging was performed. FINDINGS: Mild degenerative changes are seen in the right hip with joint space narrowing and subchondral sclero sis. The left hip is well maintained. The bones are intact and normally mineralized. The soft tiss ues are unremarkable. There is an intrauterine device in the pelvis. Surgical clips are seen in the right pelvis. IMPRESSION: Mild degenerative changes of the right hip. DATA REPOSITORY: RADIATION DOSE DELIVERED:
== END 2019-08-31 15:24 ==
PROVIDERS: PCP Nurse Practitioner Adult Health; Referring Provider Nurse Practitioner Adult Health; Visit Provider Student in an Organized Health Care Education/Training Program
DX: M16.11 Unilateral primary osteoarthritis, right hip
CPT/HCPCS: 73502

== ENCOUNTER 2019-09-10 00:33 | Outpatient (CLI) | payer BC, SELFPAY ==
--- NOTE | 2019-09-10 08:00 | DI.RAD_ITS ---
EXAM: RF JOINT INJECTION FLUORO GUID CLINICAL HISTORY: R HIP INJ UNDER FLUORO, RT HIP PAIN, M25.551 TECHNIQUE: 2D and realtime digital imaging was performed. CONTRAST MATERIAL: Water soluble contrast was administered. COMPARISON: No exams were available for comparison FINDINGS: Fluoroscopy was provided for Dr. Porter during the performance of a right hip injection. Please r efer to the procedure report for complete details. Fluoro time: 7 seconds IMPRESSION:
--- NOTE | 2019-09-10 13:35 | W.PROCNOTE ---
Date of service: 09/10/19 Time of Service: 13:35 Procedure Note Date of procedure: 09/10/19 Procedure: Right Hip Injection with Fluoroscopic Guidance Surgeon/Proceduralist/Physician: Damien Porter Procedure Diagnosis: Right Hip Femoroacetabular Impingement Procedure Indications: Melia has had persistent pain of the RIGHT hip and groin. Noninvasive measures have been tried. To serve as both diagnostic and therapeutic, an injection under fluoroscopy was recommended. I had discussed the risks of the procedure and the patient elected to proceed. Procedure Description: Melia was greeted in the flouroscopy room. The correct side was identified and the consent was reviewed with the patient and signed. The patient was then placed in the supine position on the fluoroscopy table. The RIGHT hip was then prepped with Chloraprep. The anterolateral injection starting point was identiifed by bony landmarks and fluoroscopy. The skin and soft tissue in the tract of the injection was anesthetized with 1% Lidocaine. A spinal needle was then inserted deep into the hip joint at the level of the lateral femoral neck under fluoroscopic guidance. A small amount of Omnipaque solution was injected to confirm intraarticular placement. Once confirmed, the hip was injected with 6cc of 0.5% Bupivicaine and 80mg of Depo-Medrol. A bandaid was placed on the injection site. The patient tolerated the procedure well and noted improvement in pre-injection pain.
[2019-09-10] MEDS: Omnipaque 300 MG/ML 10 ML BTL IJ (14:34)
[2019-09-10] MEDS: Bupivacaine 0.5% Pres-Free 10 ML VIAL 6 ML IJ (14:34)
[2019-09-10] MEDS: methylPREDNISolone ACETATE 80 MG/ML VIAL IM (14:35)
== END 2019-09-10 00:53 ==
PROVIDERS: PCP Nurse Practitioner Adult Health; Visit Provider Student in an Organized Health Care Education/Training Program
DX: M25.551 Pain in right hip (principal); M25.851 Other specified joint disorders, right hip
CPT/HCPCS: 20610; 77002; J1040

== ENCOUNTER 2019-10-30 11:26 | Outpatient (CLI) | payer BC, SELFPAY ==
[2019-11-03 07:48] LABS: SARS-CoV-2 RNA Undetected (Undetected); SARS-CoV-2 Specimen Source Nasopharynx
== END 2019-10-30 11:46 ==
PROVIDERS: PCP Nurse Practitioner Adult Health; Visit Provider Nurse Practitioner Family
DX: Z11.59 Encounter for screening for other viral diseases (principal)
CPT/HCPCS: U0003

== ENCOUNTER 2020-01-19 07:52 | Outpatient (CLI) | payer BC, SELFPAY ==
[2020-01-23 17:08] LABS: Patient Race White; SARS-CoV-2 RNA Undetected (Undetected); SARS-CoV-2 Specimen Source Nasal
== END 2020-01-19 08:12 ==
PROVIDERS: PCP Nurse Practitioner Adult Health; Visit Provider Nurse Practitioner Adult Health
DX: Z11.59 Encounter for screening for other viral diseases (principal)
CPT/HCPCS: U0003

== ENCOUNTER 2020-11-01 12:32 | Outpatient (CLI) | payer BC, SELFPAY ==
--- NOTE | 2020-11-01 10:39 | DI.RAD_ITS ---
Exam(s) XR KNEE RT 3V AP,LAT,OLIVA EXAM: XR KNEE RT 3V AP,LAT,OLIVA CLINICAL HISTORY: right knee pain after twisting. Hx OA, M25.561. TECHNIQUE: 2D digital imaging was performed. COMPARISON: No exams were available for comparison FINDINGS: BONES: No acute fracture is present. No bony destructive lesion is seen. There is spurring from the femoral condyles and tibial plateaus as well as articular aspect of patella. Enthesophyte is seen at the quadriceps insertion on the patella. JOINTS: The knee is normally aligned. No joint effusion is seen. SOFT TISSUE: Normal. IMPRESSION: Moderate degenerative changes. DATA REPOSITORY: RADIATION DOSE DELIVERED:
== END 2020-11-01 12:52 ==
PROVIDERS: PCP Nurse Practitioner Adult Health; Visit Provider Nurse Practitioner
DX: M25.561 Pain in right knee (principal); M25.761 Osteophyte, right knee; M17.11 Unilateral primary osteoarthritis, right knee
CPT/HCPCS: 73562

== ENCOUNTER 2021-06-30 10:17 | Outpatient (CLI) | payer BC, SELFPAY ==
--- NOTE | 2021-06-30 10:00 | DI.RAD_ITS ---
Exam(s) XR STANDING ALIGNMENT EXAM: XR STANDING ALIGNMENT CLINICAL HISTORY: eval alingment for TKA. TECHNIQUE: 2D digital imaging was performed. Standing AP views were performed from the pelvis throu gh the ankles. COMPARISON: CR XR HIP RT COMPLETE AP PELVIS from 08/31/2019 CR XR KNEE RT 3V AP,LAT,OLIVA from 11/01/2020 FINDINGS: BONES: No acute fracture is present. No bony destructive lesion is seen. JOINTS: Knees: Joint spaces well maintained. Mild periarticular spurring of the right knee. Mild na rrowing and and spurring the acetabulum the right hip. SI joints unremarkable. The ankle joints show mild narrowing of the lateral tibial talar joint spaces bilaterally. SOFT TISSUE: Normal. IMPRESSION: Degenerative changes of the right hip. Mild degenerative changes of the right knee. No significant leg length discrepancy. DATA REPOSITORY: RADIATION DOSE DELIVERED:
== END 2021-06-30 10:18 | disposition home or self-care (01) ==
LOC: DIORS 10:17
PROVIDERS: PCP Nurse Practitioner Adult Health; Referring Provider Nurse Practitioner Adult Health; Visit Provider Student in an Organized Health Care Education/Training Program
DX: M17.11 Unilateral primary osteoarthritis, right knee (principal); M16.11 Unilateral primary osteoarthritis, right hip
CPT/HCPCS: 77073

== ENCOUNTER 2021-07-31 02:38 | Outpatient (CLI) | payer BC, SELFPAY ==
[2021-07-31 13:09] LABS: Source Nasal/Nares
[2021-07-31 14:24] LABS: COVID-19 PCR Negative (Negative)
== END 2021-07-31 02:39 | disposition home or self-care (01) ==
LOC: LBO 02:38
PROVIDERS: PCP Nurse Practitioner Adult Health; Visit Provider Student in an Organized Health Care Education/Training Program
DX: Z20.822 Contact with and (suspected) exposure to COVID-19 (principal); Z01.818 Encounter for other preprocedural examination
CPT/HCPCS: 87635

== ENCOUNTER 2021-07-31 03:11 | Outpatient (CLI) | payer BC, SELFPAY ==
[2021-07-31 12:41] LABS: HCT 39.4 % (36.0-46.0); HGB 12.8 g/dL (11.2-15.7); MCH 29.9 pg (27.0-33.0); MCHC 32.5 % (32.0-36.0); MCV 92 fL (80-95); MPV 8.9 fL (8.0-11.0); Platelet Count 275 10^3/uL (130-400); RBC 4.28 10^6/uL (3.93-5.22); RDW 12.6 % (11.7-14.6); RDW-SD 42.9 fL; WBC 6.72 10^3/uL (4.4-10.8)
[2021-07-31 13:32] LABS: Anion Gap 8.8 mmol/L (3-11); BUN 17 mg/dL (7-18); CO2 27.2 mmol/L (21.0-32.0); Calcium 8.7 mg/dL (8.5-10.1); Chloride 105 mmol/L (98-107); Estimated GFR 56.56 (mL/min/1.73m2); Glucose 89 mg/dL (74-106); Potassium 4.2 mmol/L (3.5-5.1); Sodium 141 mmol/L (136-145)
== END 2021-07-31 03:12 | disposition home or self-care (01) ==
LOC: LBO 03:11
PROVIDERS: PCP Nurse Practitioner Adult Health; Visit Provider Student in an Organized Health Care Education/Training Program
DX: M25.561 Pain in right knee (principal); M17.11 Unilateral primary osteoarthritis, right knee; Z01.818 Encounter for other preprocedural examination; Z01.812 Encounter for preprocedural laboratory examination
CPT/HCPCS: 36415; 80048; 85027

== ENCOUNTER 2021-08-02 08:20 | Day surgery (SDC) | payer BC, SELFPAY ==
[2021-08-02] VITALS (9 sets, daily range): BP systolic 110–149; BP diastolic 48–86; PULSE 47–63; RESP 11–16; TEMP 36.1–36.5; O2SAT 98–100; BMI 28.5
--- NOTE | 2021-08-02 07:37 | DSE_ITS ---
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 Discontinued naproxen sodium [Aleve] 220 mg tablet 220 mg PO BID PRN ibuprofen [Advil] 200 mg tablet 400 mg PO HS PRN No Action gabapentin 300 mg capsule 300 mg PO QHS Qty: 14 0RF Rx Instructions: Take one tablet at bedtime cyclobenzaprine 5 mg tablet 5 mg PO QHS PRN (Reason: muscle spasm) Qty: 14 0RF hydrocodone-acetaminophen 7.5-300 mg tablet 1 tab PO Q4H MDD 45mg PRN (Reason: pain) Qty: 15 0RF Discharge Instructions Additional Instructions: Total Knee Discharge Instructions Activity: The most important activity is to walk. You should try to take short walks a few times a day. It is important that when resting you work on keeping the knee straight. Avoid putting a pillow behind the knee as this will encourage flexion. Work on range of motion exercises as provided by Physical Therapy. [If you have the [employer] bike coming, this will be your primary tool for exercise after the knee replacement. You should use it and follow the directions for the knee. Utilize the other exercises sparingly based on your symptoms. ] - Start outpatient physical therapy within 2 weeks. - You should wear the DARYL hose on both legs for 2 weeks. You may remove these at night. You may also use any compression sock in place of the DARYL hose. - Utilize [employer] to review exercises, see videos on exercises and obtain basic information pertaining to your surgery and your recovery. Dressing: Remove the Toni wrap by 2 days after your surgery and put on the DARYL stocking given to you from the hospital. Keep the surgical dressing (underneath the TONI wrap) in place for at least one week. After the first week it may be removed and replaced with light gauze and tape or nothing. The wound and dressing may get wet after 3 days but avoid soaking the dressing or otherwise it will need to be changed. Many people prefer covering the dressing with cling wrap (saran wrap) to minimize it from getting soaked. If it gets wet, just pat dry. If it starts to peel off then it will need to be changed. Medications: - You should take Tylenol and anti-inflammatory Celebrex as your primary pain control medications. If the Celebrex is too expensive or not covered, please call the office for another alternative (Advil/Ibuprofen or Naproxen/Aleve) - You have been prescribed a stronger pain medication Oxycodone for breakthrough pain, take as needed as prescribed. - You have also been prescribed a stomach acid reduction agent Pantoprozole to help reduce stomach acid and reflux. - You have been prescribed Gabapentin to take at night for restlessness and nerve pain. - You will be taking Aspirin 81mg twice a day for DVT prevention unless instructed otherwise. - If you have constipation you should take Colace (which has been prescribed) or Miralax (which is available [id number]). It takes most people 3-4 days to have a bowel movement. Follow-up: 2 weeks If you have any acute concerns or questions, please do not hesitate to contact the office at [phone]. You may contact Dr. Porter with any questions after hours through the hospital at [phone] or on his cell phone at [phone]. Stand Alone Forms: Anesthesia Discharge Inst., Anes.Nerve Block Instructions, Tamica Rojas ([facility]) Referrals: Damien Porter MD [ [facility] STAFF PHYSICIAN] - Equipment/Supplies: Walker Activity:: Elevate Remove Dressings/Wound Care:: Do Not Remove Shower/Bathe:: Cover Diet:: As Tolerated Discharge Orders Discharge Orders: Discharge Order (Routine); Ordered 08/02/21 Ordered By: Damien Porter Discharge Data Discharge Date/Time-TO BE ENTERED AT DEPARTURE: 08/02/21 15:12 Discharge Comment: Pt belongings sent home w/ Pt. DS: Summary Time Spent with Patient providing and/or coordinating discharge services: Less than 30 minutes Status at Discharge Functional status at discharge: uses cane/walker Overall status at discharge: patient is progressing back to baseline Mental Status: mental status grossly normal Speech and Movement: speech and movement normal Mood: congruent mood Affect: normal affect Exam Psych Mental Status: mental status grossly normal Speech and Movement: speech and movement normal Mood: congruent mood Affect: normal affect PFSH All Active Problems (Updated 08/17/21 @ 10:25 by Shun Cross RN) History of total right knee replacement (Acute 08/02/21) Femoroacetabular impingement of right hip (Acute) Anxiety (Acute 08/03/11) Intermittent, last episode 02/2019, exacerbated by physical symptoms (asthma); counseling effective Subclinical hypothyroidism (Chronic) Hyperlipidemia (Chronic 02/2019) LDL 200, statin indicated Lifetime risk ASCVD 39% Diverticulosis (Acute) History of nicotine dependence (Chronic) Quit 2014 Asthma (Chronic 05/22/13) Spirometry 2008, mild obstructive airway disease Prednisone 2013 Primary osteoarthritis of right knee (Chronic 05/31/16) [facility] Medical History (Updated 08/17/21 @ 10:25 by Shun Cross RN) Asthma Hx of contraceptive use mirena Tobacco use disorder QUIT 2014 (1 PPD x 20 years= 20 PY); Zyban, hypnotism Surgical History (Updated 08/17/21 @ 10:25 by Shun Cross RN) Arthroscopy (02/21/15) Dr Walker [facility] [place] R elbow Cholecystectomy Endometrial Biopsy (07/25/15) S/P colonoscopy (~01/20/19) 2013- adenomatous polyp Tubal Ligation, Laparoscopic Family History Mother Hypertension Decreased due to brain aneurysm 44 y/o Father Heart disease due to heart issues 80s Cancer Throat cancer (smoker) Social History Smoking/Tobacco Use Status: Former Tobacco Use Quit Date: 03/11/14 Pack-years: 20 Second Hand Exposure: Yes Smoking risk assessment performed?: Yes Alcohol Intake: current Alcohol Intake frequency: a few times a week Alcohol type: hard liquor Drug use: Occasionally Substance use type: marijuana Details: alcohol: t-2, one drink. 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
[2021-08-02] MEDS: Lactated Ringers 1,000 ML 80 ML IV (09:08)
[2021-08-02] MEDS: Gabapentin 300 MG CAP PO (09:13)
[2021-08-02] MEDS: Acetaminophen 500 MG TAB 1000 MG PO (09:13)
[2021-08-02] MEDS: Celecoxib 200 MG CAP 400 MG PO (09:14)
--- NOTE | 2021-08-02 09:20 | W.ANESPRE ---
General Info Date of Service Date Performed: 08/02/21 Height: 5 ft 7 in Weight: 82.6 kg Body Mass Index (BMI): 28.5 Surgical Procedure: Operation Date: 08/02/21 11:25 Proposed Procedure Side Surgeon p Knee Total Arthroplasty Cementless CR Right Damien Porter MD Meds Allergies and Home Medications Allergies Allergy/AdvReac Type Severity Reaction Status Date / Time formaldehyde Allergy Intermediate respiratory Verified 08/02/21 08:26 Home Medication Medication Instructions Recorded albuterol sulfate 90 mcg/actuation 1 - 2 inh inhalation .Q4-6H PRN 02/23/19 aerosol inhaler (ProAir HFA) shortness of breath or wheezing #1 unit estradiol 1 mg tablet 2 mg PO DAILY 03/18/20 acetaminophen 500 mg tablet 1,000 mg PO Q8H PRN pain #90 tabs 08/02/21 aspirin 81 mg tablet,delayed 81 mg PO BID 30 days #60 tabs 08/02/21 release celecoxib 200 mg capsule (Celebrex) 200 mg PO BID #30 caps 08/02/21 docusate sodium 100 mg capsule 100 mg PO BID #14 caps 08/02/21 (Colace) gabapentin 300 mg capsule 300 mg PO QHS #14 caps 08/02/21 oxycodone 5 mg tablet 5 mg PO Q4H PRN severe 08/02/21 post-operative pain #18 tabs pantoprazole 40 mg tablet,delayed 40 mg PO DAILY 14 days #14 tabs 08/02/21 release Current Visit Medications: Current Medications Generic Name Dose Route Start Last Admin Trade Name Freq PRN Reason Stop Dose Admin Acetaminophen 1,000 mg 08/02/21 06:00 08/02/21 09:13 Acetaminophen 500 Mg Tab PO 08/02/21 16:00 1,000 mg PREOP JUANCHO Administration Acetaminophen 1,000 mg 08/02/21 14:00 Acetaminophen 500 Mg Tab PO TID JUANCHO Aspirin 81 mg 08/02/21 20:00 Aspirin E.C. 81 Mg Tabec PO BID JUANCHO Celecoxib 400 mg 08/02/21 06:00 08/02/21 09:14 Celecoxib 200 Mg Cap PO 08/02/21 16:00 400 mg PREOP JUANCHO Administration Celecoxib 200 mg 08/02/21 20:00 Celecoxib 200 Mg Cap PO BID JUANCHO Docusate Sodium 100 mg 08/02/21 07:22 Docusate Sodium 100 Mg Cap PO BID PRN PRN Constipation Gabapentin 300 mg 08/02/21 06:00 08/02/21 09:13 Gabapentin 300 Mg Cap PO 08/02/21 16:00 300 mg PREOP JUANCHO Administration Hydromorphone HCl 0.5 mg 08/02/21 07:22 Hydromorphone 2 Mg/Ml Vial IVP Q2H PRN PRN Tranexamic Acid 1,000 mg/ 60 mls @ 360 mls/hr 08/02/21 06:00 Sodium Chloride IVPB 08/02/21 16:00 PREOP JUANCHO Ringer's Solution 1,000 mls @ 80 mls/hr 08/02/21 06:00 08/02/21 09:08 IV 08/31/21 23:59 80 mls/hr INFUSION JUANCHO Administration Cefazolin Sodium/Dextrose 2 gm in 50 mls @ 100 mls/hr 08/02/21 06:00 Ancef Duplex IVPB 08/31/21 23:59 PREOP JUANCHO Cefazolin Sodium/Dextrose 1 gm in 50 mls @ 100 mls/hr 08/02/21 08:00 Ancef Duplex IVPB 08/03/21 00:29 Q8H JUANCHO IV Miscellaneous Supplies 1 each 08/02/21 06:00 Iv Access IV 08/31/21 23:59 DIRECTED JUANCHO Ondansetron HCl 4 mg 08/02/21 07:22 Ondansetron 4 Mg/2 Ml Vial IVP Q6H PRN PRN Nausea Oxycodone HCl 0 mg 08/02/21 07:22 Oxycodone 5 Mg Tab PO Q3H PRN PRN Pain Pantoprazole Sodium 40 mg 08/03/21 07:30 Pantoprazole 40 Mg Tabcr PO DAILY@0730 JUANCHO Polyethylene Glycol 17 gm 08/02/21 07:22 Polyethylene Glycol 3350 17 Gm Packet PO BID PRN PRN Constipation Sodium Chloride 0 ml 08/02/21 06:00 Normal Saline Flush 10 Ml Syr IV 08/31/21 23:59 PRN PRN Sodium Chloride 0 ml 08/02/21 06:00 Normal Saline 10 Ml Vial IJ 08/31/21 23:59 DIRECTED PRN Sterile Water 0 ml 08/02/21 06:00 Water,Injection,Sterile 10 Ml Vial IJ 08/31/21 23:59 DIRECTED PRN PFSH Active Problems Active Problems: Problem Status Onset Code Internal derangement of right knee M23.91 Right knee DJD M17.11 Right knee pain M25.561 Femoroacetabular impingement of right hip M25.851 Anxiety 08/03/11 F41.9 Subclinical hypothyroidism E03.9 Hyperlipidemia 02/2019 E78.5 Diverticulosis K57.90 History of nicotine dependence Z87.891 Asthma 05/22/13 J45.909 Primary osteoarthritis of right knee 05/31/16 M17.11 Medical History Medical History Asthma Hx of contraceptive use mirena Tobacco use disorder QUIT 2014 (1 PPD x 20 years= 20 PY); Meera, hypnotism Surgical History Surgical History Arthroscopy (02/21/15) Dr [place] [facility] [place]olecystectomy Endometrial Biopsy (07/25/15) S/P colonoscopy (~01/20/19) 2013- adenomatous polyp Tubal Ligation, Laparoscopic Tobacco Smoking/Tobacco Use Status: Former Tobacco Use Second hand exposure: Yes Alcohol Alcohol Intake: current Alcohol intake frequency: a few times a week Alcohol type: hard liquor Substance Use Substance use: Occasionally Substance use type: marijuana Details: alcohol: t-2, one drink. marijuana: t-3, hit Vital Signs and Lab Results Vital Signs Most Recent Vital Signs in EMR: Most Recent Vital Signs Temp Pulse Resp BP Pulse Ox 36.5 C 59 L 16 149/69 H 98 08/02/21 08:42 08/02/21 08:42 08/02/21 08:42 08/02/21 08:42 08/02/21 08:42 Lab Results Blood Type / Crossmatch: No Data to Display Complete Blood Count: White Blood Count 6.72 10^3/uL (4.4-10.8) 07/31/21 12:30 Red Blood Count 4.28 10^6/uL (3.93-5.22) 07/31/21 12:30 Hemoglobin 12.8 g/dL (11.2-15.7) 07/31/21 12:30 Hematocrit 39.4 % (36.0-46.0) 07/31/21 12:30 Platelet Count 275 10^3/uL (130-400) 07/31/21 12:30 Complete Metabolic Panel: Sodium Level 141 mmol/L (136-145) 07/31/21 12:30 Potassium Level 4.2 mmol/L (3.5-5.1) 07/31/21 12:30 Chloride Level 105 mmol/L (98-107) 07/31/21 12:30 Carbon Dioxide Level 27.2 mmol/L (21.0-32.0) 07/31/21 12:30 Blood Urea Nitrogen 17 mg/dL (7-18) 07/31/21 12:30 Creatinine 1.0 mg/dL (0.55-1.02) 07/31/21 12:30 Estimated GFR/1.73 m2 56.56 (mL/min/1.73m2) 07/31/21 12:30 Calcium Level 8.7 mg/dL (8.5-10.1) 07/31/21 12:30 Glucose Level 89 mg/dL (74-106) 07/31/21 12:30 Liver Function Panel: No Data to Display Coagulation Panel: No Data to Display Cardiac Panel: No Data to Display Arterial Blood Gas: No Data to Display Venous Blood Gas: No Data to Display Pancreas Panel: No Data to Display Thyroid Panel: No Data to Display Infectious Disease: Coronavirus (COVID-19)(PCR) Negative (Negative) 07/31/21 12:35 Coronavirus 2019 Source Nasal/Nares 07/31/21 12:35 Blood Cultures: No Data to Display Toxicology Panel: No Data to Display Imaging and Studies Imaging and Studies Study information below may be from another EMR and interpreted by another provider. Please see original notes in EMR for more complete details. Stress Test Summary: Stress ECG Conclusion 1. Patient exercised for 10 minutes and 24 seconds (12.45 METS) 2. Exercise was stopped due to fatigue. 3. Rate-pressure product was 25,000. 4. There was no evidence of ischemia on ECG during this level of stress. 5. The Mckeon Score (10) estimates an annual cardiovascular mortality of 0% and a five year survival of 96%. Using the Mckeon Score there is a low probability of any angiographic coronary disease. Anesthesia Assessment and Plan Anesthesia History Personal History: No History of Anesthesia Complications Family History: No Family History of Anesthesia Complications Exercise Tolerance Exercise Tolerance: Metabolic Equivalents>4 Pertinent Negatives Pertinent Negatives: No Symptoms of GERD, No Major Cardiovascular Symptoms or Complaints, No Major Pulmonary Symptoms or Complaints (Hx asthma) and No History of CVA/TIA Cardiac & Pulmonary Exam Cardiac Exam: Normal S1/S2 Heart Sounds Pulmonary Exam: Clear Bilateral Breath Sounds Implantable Cardiac Device Does patient have a Pacemaker or an ICD?: No Airway Exam Known Difficult Airway: No Mallampati Class: 1 Mouth Opening: Normal (> 3cm) Thyromental Distance: Greater than 3 cm Neck Range of Motion: Full ROM Neck Circumference: Normal Teeth Condition: Normal Dentition ASA Classification ASA Score: ASA 2 Emergency Case?: No NPO Status NPO Status: NPO Clears >2 hours, Solids >8 hours Anesthesia Plan Resuscitation Status: Full Code Anesthesia Technique: General Anesthesia Airway Planned: Natural Airway Pain Management: Surgeon and patient request nerve block Monitors Used: Standard Monitors
--- NOTE | 2021-08-02 09:52 | W.ANESNERVE ---
Nerve Block Single Injection Procedure Date and Time Date Performed: 08/02/21 Procedure Start: 09:53 Location Where Procedure Performed Procedure Location: Day Surgery Unit Reason Performed: Postoperative Analgesia Requesting Provider: Damien Porter Timeout Performed Timeout Performed: Yes Monitoring Used ECG, Blood Pressure and SpO2 Sterility Sterility: Hand Hygiene, Surgical Cap, Surgical Mask, Sterile Gloves, Eye Protection and Chlorhexidine Sedation Given During Procedure Sedation Given (Indicate Dose Given): No Sedation given Patient Mental Status Patient Mental Status: Awake Nerve Block 1st Nerve Block: Laterality: Right Block Type: Adductor Canal Needle / Catheter Used: 100mm SonoPlex II Local Anesthetic Bolus (Indicate Dose Given): Lidocaine used for local infiltration of skin, Injected in 3-5ml increments after negative blood aspiration and Bupivacaine 0.25% Dose:: 15 mL Additives (Indicate Dose Given): None Ultrasound: Sterile probe cover and gel used Ultrasound Image Saved?: Yes Nerve Stimulator: Not Used Paresthesia: None Procedure Tolerated: No Complications and Patient tolerated well Procedure Outcome: Successful Performed By: Jane Coates Supervised By: Kannan Zafar
[2021-08-02] MEDS: ceFAZolin 2 GM/50 ML BAG IVPB (10:37)
--- NOTE | 2021-08-02 14:03 | ROE_ITS ---
Date of service: 08/02/21 Time of Service: 12:00 Operative Note Operative Note DATE OF PROCEDURE: 08/02/21 PRE-OP DIAGNOSIS: Knee Osteoarthritis POST-OP DIAGNOSIS: same PROCEDURE: Right Total Knee Replacement SURGEON: Damien Porter SUSTAINABILITY DIRECTOR: Marion Mcguire ANESTHESIA TYPE: Spinal Refer to Anesthesia Record ESTIMATED BLOOD LOSS: 50 PATHOLOGY: none sent TOURNIQUET TIME: 0 COMPLICATIONS: None Patient was transported to: PACU Patient's condition: stable Implants: 1. Depuy Attune Cementless Cruciate Retaining Femoral Component, Size 7 2. Depuy Attune Cementless Rotating Platform Tibial Component, Size 5 3. Depuy Attune 7x6mm CR/RP Poly 4. Depuy Attune Patellar Component, Size 38 Indications: I have seen Melia in clinic for symptoms of knee arthritis, confirmed with radiographic findings. She has exhausted nonoperative methods and was having significant limitations in daily function and desired better function and less pain. I discussed the technical details of a knee replacement. I explained the risks of the procedure to include, but not limited to, bleeding, infection, pain, stiffness, fracture, damage to nerves and vessels, damage to muscles and tendons, loosening, need for repeat procedure, blood clot and cardiopulmonary demise. Despite these risks, Melia elected to proceed. Findings: There was significant signs of arthritis throughout the knee, more focally over the lateral femur and globally medially. Procedure Description: Melia was greeted in the preoperative holding area where the correct side was identified and marked. The consent was reviewed with the patient and signed. The history and physical was updated. All questions were answered. Preoperative medications were administered: Acetaminophen 1000mg, Celebrex 400mg, and Gabapentin 300mg. An adductor canal block was then administered by the anesthesia team in the PACU. She was taken back to the operating room. A spinal anesthestic was then administered. The patient was placed into the supine position on the operating room table. A nonsterile tourniquet was placed high onto the leg but only used for cementing. Posts were placed for positioning during the procedure. All bony prominences were well padded. Prophylactic antibiotics in the form of Cefazolin were administered. 1g of Tranxemic Acid was given intravenously within 30 minutes of incision. The right leg was then prepped with Chloraprep and draped in a standard fashion with impervious stockinette. A second prep with Chloraprep was performed prior to application of Iodine impregnated skin protection. A timeout to confirm correct identity, side and site, procedure, allergies, anesthesia, and medical concerns was performed. With the knee in some flexion, a midline incision was made overlying the knee. Full thickness skin flaps were raised once the extensor mechanism was encountered. These were raised medially and laterally. Any bleeding was controlled with electrocautery. Once the extensor mechanism was fully exposed, a medial parapatellar arthrotomy was performed in a flexed position. All bleeding from the arthrotomy and the geniculate arteries was coagulated. A medial subperiosteal peel was performed with electrocautery to the midcoronal plane. The fat pad was removed while keeping the patellar tendon protected. The anterior distal femur synovium was removed for later visualization. The ACL and PCL were resected and the anterior horn of the lateral meniscus was transected. The knee was then flexed with the patella everted. Large osteophytes from the tibia were removed. Large osteophytes from the femur were removed. Using a step drill, and based on preoperative templating, the femoral canal was entered. This was done with a step drill without any difficulty. The intramedullary distal femoral cut guide was inserted, set to a 6 degree valgus cut and 9mm cut thickness. The distal femoral cut guide was then held in position and pinned. With the soft tissues protected, the distal cut was performed. This was passed over a few times to ensure a planar cut. I then turned attention to the tibia. The extramedullary guide was placed onto the leg. The distal aspect was slid medial to adjust for position of center of ankle and stay in line with shaft of the tibia. Approximately 3-5 degrees of posterior slope was kept in the pr oximal cutting guide. The center of the guide was aligned with the PCL. The stylus was used to assess cut thickness. The medial side, most involved side, was set for a 4mm cut. This was then held in position and pinned into place with 2 additional pins and a cross pin for stability. The medial and lateral collateral ligaments were protected and the cut was performed. With this completed, it was assessed and noted to be of appropriate dimensions. The guide was removed. A spacer block was inserted and the knee was brought into extension. The 6mm spacer block provided full extension, without hyperextension and with stability of both the medial and lateral collateral ligaments was assessed. The pins from the femur and the tibia were then removed. The distal femur was then sized. The anterior stylus was placed onto the lateral ridge of the anterior femur. This indicated a size 7 femur. The external rotation of the guide was adjusted to 3 degrees to match the epicondylar axis, perpendicular to [place]?s line. The 4-in-1 cutting guide was the placed. The posterior medial femur cut was evaluated and appeared of good thickness. The spacer block was inserted underneath the cutting guide and stability was confirmed in 90 degrees of flexion. An kulwant wing was used to confirm appropriate position of the anterior cut to avoid notching. This cutting guide was ensured to be flush on the cut surface and then pinned into place with headed pins. While protecting the soft tissues, quad tendon, and collateral ligaments, the anterior and posterior cuts were performed with a saw. The central two pins were removed and the posterior and anterior chamfers were cut next. The notch-cutting guide was placed. This was pinned to lateralize the femoral component as much as possible while keeping it flush on the cut surface. This was then pinned into position. A reciprocating saw was used to make the notch cut. A rasp smoothed the cut surfaces. The medial and lateral menisci were removed. A trial femoral component was then inserted, impacted down to the cut surfaces, and the lug holes were drilled. A provisional trial tibial component was placed and the knee was brought through range of motion. There was noted to be excellent extension and flexion. There was no significant instability. The polyethylene was trialed until there was good flexion and extension with excellent stability to the medial and lateral collaterals. The patella was tracking without thumbs. A size 6mm polyethylene component provided the best range of motion and stability with less than 2mm gapping with medial and lateral stress and full extension without significant hyperextension. The tibial cut surface was fully exposed. The tibia was then sized as a 5. The tibia had been previously marked during trialing to correspond to the center of the tibial component to help with rotation. The trial was aligned to this sharon, approximately rotated to the medial 1/3rd of the tibial tubercle. The trial was pinned into place. The tibia was prepared with a reamer and a keel punch and lug holes. The knee was then brought into extension and the patella was measured as 26mm. Using the patellar clamp and cut guide, this was resected to a flat surface with at least 13mm of thickness remaining. The size 38 patella fit the best. This was oriented and then clamped into position. The lugs were drilled. The trial components were removed. The final components were opened on the back table. The periosteal and capsular tissues, especially posteriorly, around the knee were then systematically injected with a periarticular cocktail consisting of 246mg of Ropivacaine, 0.5mg of Epinephrine, 0.08mg of Clonidine, and 30mg of Ketorolac, diluted to 100cc. On the back table, with the implants opened, the cement was mixed. One batch of high viscosity cement was prepared with vacuum assistance. After the cement was ready a small amount was placed on the cut surface of the patella and the patellar button was clamped into position and held. While the cement was hardening, the cementless knee components were placed. Starting with the tibial component, the tibia was subluxed anteriorly and the lug holes of the component were lined up. The tibia was then impacted with an impactor and mallet until the tibial component was in contact with the tibia. The final polyethylene component was inserted. Then, the femoral component was inserted. The lug holes were aligned and the component was impacted into position. The knee was irrigated with Surgiphor Betadine solution. This was allowed to sit in the knee for 3 minutes and then it was irrigated out with saline. After the cement had finally cured, approximately 15min, the clamp was removed from the patella and the knee was taken through range of motion. The patella was tracking with a no-thumbs technique. The capsule was then reapproximated with a No. 1 Vicryl at multiple locations. The capsule was finally closed with a No. 2 Stratafix, barbed suture. The second dosing of 1g TXA was started. Deep tissues were then reapproximated with 0 Vicryl and 2-0 Vicryl. The skin was closed with a running 3-0 Monocryl in a subcuticular fashion. This was reinforced with skin glue. A Mepilex silver dressing was applied along with a xnoi-ac-bzhxa DARLENE wrap. A CryoCuff was applied. Melia was transferred to the hospital bed without difficulty an suffering no apparent complication. Melia has a good prognosis. Physical therapy will start today and without restrictions, weight-bearing as tolerated. Aspirin 81mg BID will be used for DVT prophylaxis.
[2021-08-02] MEDS: oxyCODONE 5 MG TAB PO (14:20)
--- NOTE | 2021-08-02 15:05 | W.ANESPOSTOP ---
Postoperative Evaluation Date, Time and Location Date Performed: 08/02/21 Time Performed: 14:45 Patient Location: Day Surgery Unit Vital Signs Most Recent Imported Vital Signs: Most Recent Vital Signs Temp Pulse Resp BP Pulse Ox 36.4 C L 61 16 126/75 99 08/02/21 14:05 08/02/21 14:05 08/02/21 14:05 08/02/21 14:05 08/02/21 14:05 Pain Score Most Recent Pain Score: Most Recent Pain Score Pain Level 0 08/02/21 14:05 Assessment Mental Status: Awake (Alert & Oriented to Patient Baseline) Airway and Respiratory Function: Patent airway with normal (patient baseline) respiratory exam Cardiovascular Function: Hemodynamically Stable Hydration Status: Adequately Hydrated Nausea & Vomiting: No Nausea or Vomiting Pain: Pt. Denies Any Pain Peripheral Nerve Block: Regional nerve block not resolved at time of post operative discharge
== END 2021-08-02 15:12 | disposition home or self-care (01) ==
PROVIDERS: PCP Nurse Practitioner Adult Health; Visit Provider Student in an Organized Health Care Education/Training Program
PROC: (CPT 27447; principal; 2021-08-02 11:15)
DX: M17.11 Unilateral primary osteoarthritis, right knee (principal); J45.909 Unspecified asthma, uncomplicated; E78.5 Hyperlipidemia, unspecified; F41.9 Anxiety disorder, unspecified
CPT/HCPCS: 27447; 76942; 97162; 97530; J0690; J1100; J2405

== ENCOUNTER 2021-08-17 11:14 | Outpatient (CLI) | payer BC, SELFPAY ==
--- NOTE | 2021-08-17 10:15 | DI.RAD_ITS ---
Exam(s) XR KNEE RT 1V EXAM: XR KNEE RT 1V CLINICAL HISTORY: 1ST POST OP R TKA. TECHNIQUE: 2D digital imaging was performed. COMPARISON: CR XR KNEE RT 3V AP,LAT,OLIVA from 11/01/2020 FINDINGS: Single lateral view Position alignment of the components of the prosthesis is satisfactory on this lateral view. No frac ture or loosening evident. IMPRESSION: DATA REPOSITORY: RADIATION DOSE DELIVERED:
--- NOTE | 2021-08-17 10:15 | DI.RAD_ITS ---
Exam(s) XR STANDING ALIGNMENT EXAM: XR STANDING ALIGNMENT CLINICAL HISTORY: 1ST POST OP R TKA. TECHNIQUE: 2D digital imaging was performed. COMPARISON: CR XR STANDING ALIGNMENT from 06/30/2021 FINDINGS: 3 views There is been interval placement of a right knee prosthesis which appears to be in satisfactory posit ion alignment. No fracture or loosening. Opposite-left knee appears unremarkable. Mild narrowing o f the joint space of the right hip is noted. Left hip appears unremarkable. Ankles unremarkable. N o osseous lesions. Bone density normal. IMPRESSION: DATA REPOSITORY: RADIATION DOSE DELIVERED:
== END 2021-08-17 11:15 | disposition home or self-care (01) ==
LOC: DIORS 11:14
PROVIDERS: PCP Nurse Practitioner Adult Health; Visit Provider Student in an Organized Health Care Education/Training Program
DX: Z96.651 Presence of right artificial knee joint (principal)
CPT/HCPCS: 73560; 77073

== ENCOUNTER 2022-08-17 10:07 | Outpatient (CLI) | payer BC, SELFPAY ==
--- NOTE | 2022-08-17 09:45 | DI.RAD_ITS ---
Exam(s) XR KNEE RT 2V AP,LAT EXAM: XR KNEE RT 2V AP,LAT CLINICAL HISTORY: ANNUAL F/U R TKA. TECHNIQUE: 2D digital imaging was performed. Images were obtained. AP and lateral views were obtai jamin. COMPARISON: CR XR KNEE RT 1V from 08/17/2021 FINDINGS: BONES: There are stable post operative changes present. No fracture or dislocation. JOINTS: The orthopedic hardware is in good position. No evidence of hardware loosening. SOFT TISSUE: Normal. IMPRESSION: Stable postoperative changes. DATA REPOSITORY: RADIATION DOSE DELIVERED:
== END 2022-08-17 10:08 | disposition home or self-care (01) ==
LOC: DIORS 10:07
PROVIDERS: PCP Nurse Practitioner Adult Health; Referring Provider Nurse Practitioner Adult Health; Visit Provider Student in an Organized Health Care Education/Training Program
DX: Z96.651 Presence of right artificial knee joint (principal); Z47.1 Aftercare following joint replacement surgery
CPT/HCPCS: 73560

== ENCOUNTER → 2023-03-21 02:51 | Outpatient (CLI) | payer BC, SELFPAY ==
--- NOTE | 2023-03-21 15:27 | DI.MAMMO_ITS ---
Exam(s) MAMMO SCREENING EXAM: MAMMO SCREENING CLINICAL HISTORY: screening,z12.39. TECHNIQUE: Bilateral full field digital CC and MLO mammographic images were obtained with 3D tomosyn thesis and utilizing computer aided detection (CAD). COMPARISON: Prior mammograms were reviewed dating back to 2013, most recent being 2019.. FINDINGS: Fibroglandular tissue pattern is again noted be moderately dense. Nodular densities in left breast remain unchanged from prior mammograms. There are no new spiculated masses nor malignant appearing microcalcification groups. There is no significant architectural distortion nor skin thickening-retraction. IMPRESSION: Stable benign-appearing findings. No radiographic evidence of malignancy. BI-RADS Category 2 - Benign Findings Breast Density - Category C - Heterogeneously dense Breast density Category C or D implies that the patient has dense breast tissue. Dense breast tissue can make it harder to find cancer on a mammogram. Dense breast tissue is also associated with an incr eased risk of breast cancer. This information about the result of the mammogram report was provided to the patient to raise their awareness. Use this report when you speak with the patient about their risks for breast cancer, which includes their family history. At that time, you may recommend additional screening tests (Ultrasoun d or MRI) as these tests may add significant information. A negative radiographic report should not delay biopsy if a dominant or clinically suspicious mass is present. Up to ten percent of cancers are not identified on mammography. A negative report may reinforce clinical impression. Adenosis and dense breasts may obscure an underlying neoplasm. False positive reports average 6 to 10%. Patient will receive a letter notifying them of these results.
== END ==
PROVIDERS: PCP Nurse Practitioner Adult Health; Visit Provider Nurse Practitioner Adult Health
DX: Z12.31 Encounter for screening mammogram for malignant neoplasm of breast (principal)
CPT/HCPCS: 77063; 77067

== ENCOUNTER 2023-05-21 04:15 | Outpatient (CLI) | payer BC, SELFPAY ==
[2023-05-21 09:51] LABS: Hemoglobin A1C 5.6 % (<5.7)
[2023-05-21 10:17] LABS: ALT 30 U/L (14-59); AST 13 U/L (15-37); Albumin 3.9 g/dL (3.4-5.0); Alkaline Phosphatase 52 U/L (46-116); Anion Gap 8.4 mmol/L (3-11); BUN 17 mg/dL (7-18); Bilirubin, Total 0.4 mg/dL (0.2-1.0); CO2 28.6 mmol/L (21.0-32.0); Chloride 105 mmol/L (98-107); Glucose 98 mg/dL (74-106); Potassium 3.8 mmol/L (3.5-5.1); Sodium 142 mmol/L (136-145); Total Protein 7.6 g/dL (6.4-8.2)
[2023-05-21 10:27] LABS: Calculated LDL 200 mg/dL (<100); Cholesterol 285 mg/dL (<200); HDL Cholesterol 71 mg/dL (40-60); TSH (W/Ref FT4) 2.08 uIU/mL (0.36-3.74); Triglyceride 72 mg/dL (<150)
[2023-05-22 08:46] LABS: Insulin 6.9 uIU/mL (<29.0)
== END 2023-05-21 04:16 | disposition home or self-care (01) ==
LOC: LBO 04:16
PROVIDERS: PCP Nurse Practitioner Adult Health; Visit Provider Nurse Practitioner Adult Health
DX: E78.5 Hyperlipidemia, unspecified (principal); E03.9 Hypothyroidism, unspecified; R63.5 Abnormal weight gain; R79.89 Other specified abnormal findings of blood chemistry
CPT/HCPCS: 36415; 80048; 80053; 80061; 83036; 83525; 84443

== ENCOUNTER → 2023-07-16 09:10 | Outpatient (CLI) | payer BC, SELFPAY ==
--- NOTE | 2023-07-16 12:40 | DI.RAD_ITS ---
Exam(s) XR ARTHRITIS SERIES EXAM: XR ARTHRITIS SERIES CLINICAL HISTORY: r/o bony erosions M25.541 M25.542 BILAT PAIN IN JOINTS M79.645 PAIN LT. TECHNIQUE: 2D digital imaging was performed. Two views of both hands. COMPARISON: No exams were available for comparison FINDINGS: BONES: No acute fracture is present. No bony erosions. Bones are normally mineralized. JOINTS: No dislocation present. Minimal degenerative changes of the interphalangeal joints of the fi ngers. [id number] degenerative changes of the 1st carpal metacarpal joints, right greater than left. SOFT TISSUE: Normal. IMPRESSION: No evidence of bony erosions. DATA REPOSITORY: RADIATION DOSE DELIVERED:
== END ==
PROVIDERS: PCP Nurse Practitioner Adult Health; Visit Provider Nurse Practitioner Adult Health
DX: M25.541 Pain in joints of right hand (principal); M25.542 Pain in joints of left hand
CPT/HCPCS: 73120

== ENCOUNTER 2023-08-16 10:05 | Outpatient (CLI) | payer BC, SELFPAY ==
--- NOTE | 2023-08-16 10:00 | DI.RAD_ITS ---
Exam(s) XR KNEE RT 2V AP,LAT EXAM: XR KNEE RT 2V AP,LAT CLINICAL HISTORY: annual f/u R TKA. TECHNIQUE: 2D digital imaging was performed. Two images were obtained. AP and lateral views were ob tained. COMPARISON: CR XR KNEE RT 2V AP,LAT from 08/17/2022 FINDINGS: BONES: There are stable post operative changes of a right total knee replacement present. No fractur e or dislocation. There is an enthesophyte at the superior patella. JOINTS: The orthopedic hardware is in good position. No evidence of hardware loosening. SOFT TISSUE: Normal. IMPRESSION: Stable right total knee replacement. DATA REPOSITORY: RADIATION DOSE DELIVERED:
== END 2023-08-16 10:06 | disposition home or self-care (01) ==
LOC: DIORS 10:06
PROVIDERS: PCP Nurse Practitioner Adult Health; Referring Provider Nurse Practitioner Adult Health; Visit Provider Physician Assistant
DX: Z96.651 Presence of right artificial knee joint (principal); Z47.1 Aftercare following joint replacement surgery
CPT/HCPCS: 73560

== ENCOUNTER 2023-10-11 09:52 | Day surgery (SDC) | payer BC, SELFPAY ==
--- NOTE | 2023-10-10 11:53 | ANES.PREOP_ITS ---
General Info Date of Service Date Performed: 10/11/23 Height: 5 ft 7.5 in Weight: 84.822 kg Body Mass Index (BMI): 28.8 Surgical Procedure: Operation Date: 10/11/23 11:20 Proposed Procedure Side Surgeon radha Cross MD Meds Allergies and Home Medications Allergies Allergy/AdvReac Type Severity Reaction Status Date / Time formaldehyde Allergy Intermediate respiratory Verified 10/11/23 10:17 Home Medication ?Medication ?Instructions ?Recorded estradiol 1 mg tablet 2 mg PO DAILY 03/18/20 naproxen 250 mg tablet 250 mg PO BID PRN 11/10/21 albuterol sulfate 90 mcg/actuation 2 inh inhalation Q6H PRN shortness 07/03/22 breath activated powder inhaler of breath or wheezing #1 ea (ProAir RespiClick) atorvastatin 20 mg tablet 20 mg PO QHS #90 tabs 07/15/23 Current Visit Medications: Current Medications Generic Name Dose Route Start Last Admin Trade Name Freq PRN Reason Stop Dose Admin Ringer's Solution 1,000 mls @ 80 mls/hr 10/11/23 06:00 IV 11/09/23 23:59 INFUSION JUANCHO IV Miscellaneous Supplies 1 each 10/11/23 06:00 Iv Access IV 11/09/23 23:59 DIRECTED JUANCHO Sodium Chloride 0 ml 10/11/23 06:00 Normal Saline Flush 10 Ml Syr IV 11/09/23 23:59 PRN PRN Sodium Chloride 0 ml 10/11/23 06:00 Normal Saline 10 Ml Vial IJ 11/09/23 23:59 DIRECTED PRN Sterile Water 0 ml 10/11/23 06:00 Water,Injection,Sterile 10 Ml Vial IJ 11/09/23 23:59 DIRECTED PRN PFSH Active Problems Active Problems: Problem Status Onset Code Arthritis of carpometacarpal (CMC) joint of both thumbs Acute ~07/2023 M18.0 Hypercholesterolemia with LDL greater than 190 mg/dL Acute ~05/2023 E78.00 Left wrist tendonitis Acute M77.8 Vasomotor acroparesthesia Acute I73.89 Cardiac murmur Acute ~03/2023 R01.1 Femoroacetabular impingement of right hip Acute M25.851 Anxiety Acute 08/03/11 F41.9 Subclinical hypothyroidism Chronic E03.9 Hyperlipidemia Chronic 02/2019 E78.5 Diverticulosis Acute K57.90 History of nicotine dependence Chronic Z87.891 Asthma Chronic 05/22/13 J45.909 Medical History Medical History Hx of contraceptive use mirena Tobacco use disorder QUIT 2014 (1 PPD x 20 years= 20 PY); Zyban, hypnotism Asthma Surgical History Surgical History History of total right knee replacement (08/02/21) S/P colonoscopy (~01/20/19) 2012- adenomatous polyp Tubal Ligation, Laparoscopic Endometrial Biopsy (07/25/15) Cholecystectomy Arthroscopy (02/21/15) [place] [facility] [place] Tobacco Smoking/Tobacco Use Status: Former Tobacco Use Passive smoking exposure: Yes Second hand exposure: Yes Alcohol Alcohol Intake: current Alcohol intake frequency: a few times a week Alcohol type: hard liquor Substance Use Substance use: Occasionally Substance use type: marijuana Details: alcohol: t-2, one drink. marijuana: t-3, hit Vital Signs and Lab Results Vital Signs Most Recent Vital Signs in EMR: Temp Pulse Resp BP Pulse Ox 36.2 C L 47 L 16 162/59 H 100 10/11/23 10:19 10/11/23 10:19 10/11/23 10:19 10/11/23 10:19 10/11/23 10:19 Lab Results Blood Type / Crossmatch: No Data to Display Complete Blood Count: No Data to Display Complete Metabolic Panel: No Data to Display Liver Function Panel: No Data to Display Coagulation Panel: No Data to Display Cardiac Panel: No Data to Display Arterial Blood Gas: No Data to Display Venous Blood Gas: No Data to Display Pancreas Panel: No Data to Display Thyroid Panel: No Data to Display Infectious Disease: No Data to Display Blood Cultures: No Data to Display Toxicology Panel: No Data to Display Imaging and Studies Imaging and Studies Study information below may be from another EMR and interpreted by another provider. Please see original notes in EMR for more complete details. Stress Test Summary: 2019: Stress ECG Conclusion 1. Patient exercised for 10 minutes and 24 seconds (12.45 METS) 2. Exercise was stopped due to fatigue. 3. Rate-pressure product was 25,000. 4. There was no evidence of ischemia on ECG during this level of stress. 5. The Mckeon Score (10) estimates an annual cardiovascular mortality of 0% and a five year survival of 96%. Using the Mckeon Score there is a low probability of any angiographic coronary disease. Echocardiogram Summary: 05/04: LVEF 60-65%, trace MR/TR. Anesthesia Assessment and Plan Anesthesia History Personal History: No History of Anesthesia Complications Family History: No Family History of Anesthesia Complications Exercise Tolerance Exercise Tolerance: Metabolic Equivalents>4 Pertinent Negatives Pertinent Negatives: No Symptoms of GERD Cardiac & Pulmonary Exam Cardiac Exam: Normal S1/S2 Heart Sounds Pulmonary Exam: Clear Bilateral Breath Sounds Implantable Cardiac Device Does patient have a Pacemaker or an ICD?: No Airway Exam Known Difficult Airway: No Mallampati Class: 1 Mouth Opening: Normal (> 3cm) Thyromental Distance: Less than 3 cm Neck Range of Motion: Full ROM Neck Circumference: Normal Teeth Condition: Removable Dentures/Plates Lower (partial) ASA Classification ASA Score: ASA 2 Emergency Case?: No NPO Status NPO Status: NPO Clears >2 hours, Solids >8 hours Anesthesia Plan Resuscitation Status: Full Code Anesthesia Technique: General Anesthesia Airway Planned: Natural Airway Monitors Used: Standard Monitors Preoperative Comments:: 63 yo female for colo. Sig PMHx: asthma, anxiety, hypothyroid, former smoker, occ EtOH.
--- NOTE | 2023-10-10 20:19 | PDOC.DSDIS_ITS ---
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 Dc PatelAir RespiClick 90 mcg/actuation aerosol powdr breath activated 2 inh inhalation Q6H PRN (Reason: shortness of breath or wheezing) Qty: 1 0RF naproxen 250 mg tablet 250 mg PO BID PRN atorvastatin 20 mg tablet 20 mg PO QHS Qty: 90 3RF Rx Instructions: Resumption of statin Discontinued bisacodyl [Dulcolax (bisacodyl)] 5 mg tablet,delayed release (DR/EC) 5 mg PO ONCE Qty: 4 0RF Rx Instructions: Take per colonoscopy instructions provided by ordering providers office polyethylene glycol 3350 17 gram/dose powder 17 g PO ONCE Qty: 238 0RF Rx Instructions: Take per colonoscopy instructions provided by ordering providers office Discharge Instructions Instructions: Colon polyps, Diverticulosis Additional Instructions: Melia, we were able to finish your colonoscopy today without too much difficulty. I did find and removed 2 polyps today. One of them may just be inflammation from the bowel prep, or some other irritation. Regardless, I will send both of these off for testing, and once we know the nature of the tissue, the office will be in touch with recommendations regarding the timing of your next colonoscopy. Incidentally, he also have a little bit of diverticulosis. Diverticula are little weak spots in the wall of the colon. They typically accumulate as we get older. This may take care of it is to maintain a diet that is rich in fiber, stay well-hydrated, and avoid constipation. Have attached a little bit of information here about diverticulosis as well as colorectal polyps. If you have any questions in the meantime please do not hesitate to ask. 1. If tolerated, consume a soft, low fiber diet for 1-2 days. 2[address] Do not drive, drink alcohol, operate machinery, make critical decisions, or do activities that require coordination or balance for 24 hours. 3. Because air was put into your colon during the procedure, expelling air from your rectum (passing gas or farting) is normal. 4. You may not have a bowel movement for 1-3 days because of the colonoscopy prep. This is normal. 5. Go directly to the emergency room if you notice any of the following: Develop chills (warm to touch), or if you have a thermometer and your temperature is above 101 Difficulty breathing or difficultly swallowing Persistent vomiting Severe abdominal pain, other than gas cramps Severe chest pain Black, tarry stools Any bleeding ? exceeding one tablespoon 6. Call your physician if the site where your intravenous was started becomes red, swollen, painful, and warm to touch. 7. Your physician has reviewed your pre-procedure medications. Please continue to take those medications as previously ordered. You will be given specific information/education regarding any changes to your medications before leaving. Stand Alone Forms: Anesthesia Discharge InstTamica Cummings (DSU) Activity:: Activity as Tolerated Diet:: As Tolerated Discharge Orders Discharge Orders: Discharge Order (Routine); Ordered 10/10/23 Ordered By: Remington Cross DS: Diagnosis Discharge Diagnosis (1) Encounter for screening colonoscopy: Status: Acute Asessment and Plan: Follow-up on polypectomy results
--- NOTE | 2023-10-10 20:21 | COLE_ITS ---
Date of service: 10/11/23 Time of Service: 13:40 Colonoscopy Report Date of procedure: 10/11/23 Pre-op diagnosis general: screening colonoscopy Post-op diagnosis procedure note: other (Colon polyps, diverticulosis) Procedure: colonoscopy with polypectomy Surgeon: Remington Cross Anesthesia Type: General:No Airway Estimated blood loss (mL): 5 Pathology: other (0.25 cm cecal polyp, 0.25 cm cecal polyp #2) Complications: None Disposition: same day Indications: Melia is a 63 year old woman with a history of adenomatous polyps who needs her next screening colonoscopy Prep: Miralax/Dulcolax Procedure Start Time: 13:15 Procedure End Time: 13:33 Retraction Time: 12 Findings: Sigmoid diverticulosis; 0.25 cm cecal polyp, 0.25 cm cecal polyp #2 Procedure Description: After the induction of anesthesia, and with the patient in left lateral decubitus position, I began by performing an external anorectal exam.? Perineum and skin were normal, as was the anal verge.? There was no evidence of external hemorrhoids.? Next, I performed a digital rectal exam.? I did not appreciate any abnormal findings.? Next, I advanced a colonoscope into the rectal vault.? I performed retroflexion.? This was normal.? Using insufflation, I then advanced the colonoscope beyond the rectal folds and into the sigmoid colon before advancing towards the cecum.?The scope was noted to be in the cecum by identification of the ileocecal valve and appendiceal orifice.? Just a few centimeters away from the appendiceal orifice was a 0.25 cm flat polyp. This was removed with cold forceps. A few millimeters away from this was another area of slightly raised up tissue. Actually looked a little more irritated, rather than truly polypoid. Regardless, this was removed with cold forceps in a fashion similar to the first. There was minimal bleeding here. This was labeled cecal polyp #2. I then began withdrawing the colonoscope using repeated irrigation as necessary for full evaluation of the colonic mucosa. ?Once the scope was withdrawn to the level of the rectum, great care was taken to examine portions of the rectal folds.? Finally, the scope was withdrawn and the patient was brought to the same-day surgery recovery unit as the anesthetic wore off. ?The findings and instructions were shared with the patient prior to discharge. [place] Bowel Prep [place] Bowel Prep Right Colon: 3 Left Colon: 3 Transverse Colon: 3 Total Score: 9
[2023-10-11 10:19] VITALS: BP 162/59; PULSE 47; RESP 16; TEMP 36.2; O2SAT 100
[2023-10-11] MEDS: Lactated Ringers 1,000 ML 80 ML IV (10:26)
[2023-10-11 12:05] VITALS: BMI 28.8
--- NOTE | 2023-10-11 13:22 | BOWEL_PTH ---
PATIENT: Melia Sanchez LOC: [facility] U#:[id number] AGE/SX: 63/F ROOM: RE10/11/[address]: Remington Cross MD : [id number] BED: DIS: 10/11/2023 SPEC #: [id number] RECD: 10/11/23 15:12 STATUS: LUIS FELIPE RE #: [id number] BRENDA: 10/11/23 13:[address]: Remington Cross DEPT: Surgical Specimen RECD BY: Dinorah Bob ENTERED: 10/11/23 15:13 SP TYPE: Bowel OTHR DR: Laila Baldwin, LILIANE Tissues: 1 - BIOPSY BOWEL 2 - BIOPSY BOWEL Procedures: GROSS AND MICRO LEVEL 4 Comments: [id number]
[2023-10-11 13:35] VITALS: BP 112/52; PULSE 50; RESP 16; TEMP 36.5; O2SAT 100
--- NOTE | 2023-10-11 13:47 | W.ANESPOSTOP ---
Postoperative Evaluation Date, Time and Location Date Performed: 10/11/23 Time Performed: 13:48 Patient Location: Day Surgery Unit Vital Signs Most Recent Imported Vital Signs: Most Recent Vital Signs Temp Pulse Resp BP Pulse Ox 36.5 C 50 L 16 112/52 L 100 10/11/23 13:35 10/11/23 13:35 10/11/23 13:35 10/11/23 13:35 10/11/23 13:35 Pain Score Most Recent Pain Score: Most Recent Pain Score Pain Level 0 10/11/23 13:35 Assessment Mental Status: Awake (Alert & Oriented to Patient Baseline) Airway and Respiratory Function: Patent airway with normal (patient baseline) respiratory exam Cardiovascular Function: Hemodynamically Stable Hydration Status: Adequately Hydrated Nausea & Vomiting: No Nausea or Vomiting Pain: Pt. Denies Any Pain Peripheral Nerve Block: Patient did not receive a nerve block
[2023-10-11 14:03] VITALS: BP 175/69; PULSE 50; RESP 16; TEMP 36; O2SAT 98
== END 2023-10-11 14:18 | disposition home or self-care (01) ==
PROVIDERS: PCP Nurse Practitioner Adult Health; Visit Provider Surgery
PROC: 0DJD8ZZ Inspection of Lower Intestinal Tract, Via Natural or Artificial Opening Endoscopic (ICD-10-PCS; CPT 45378; principal; 2023-10-11 11:15)
DX: Z12.11 Encounter for screening for malignant neoplasm of colon (principal); D12.0 Benign neoplasm of cecum; K57.30 Diverticulosis of large intestine without perforation or abscess without bleeding; J45.909 Unspecified asthma, uncomplicated; F41.9 Anxiety disorder, unspecified; E03.9 Hypothyroidism, unspecified; Z87.891 Personal history of nicotine dependence
CPT/HCPCS: 45380; 88305; J2704

== ENCOUNTER 2023-10-22 02:05 | Outpatient (CLI) | payer BC, SELFPAY ==
--- NOTE | 2023-10-22 07:30 | DI.RAD_ITS ---
Exam(s) XR FOOT LT COMPLETE EXAM: XR FOOT LT COMPLETE CLINICAL HISTORY: Left foot pain,m79.672. TECHNIQUE: 2D digital imaging was performed. COMPARISON: No exams were available for comparison FINDINGS: 3 views There is no evidence of acute fracture or diastasis of the Lisfranc joint. However, there are signif icant degenerative changes at the 1st, 2nd, and 3rd tarsometatarsal joints with joint space narrowing and degenerative subarticular cysts in these articulations. There is relative sparing of the 4th an d 5th tarsometatarsal joints. Metatarsophalangeal joints appear unremarkable. More proximal articul ations in the hind foot appear unremarkable. There is, however, an element pes planus. There is no obvious osseous tarsal coalition. IMPRESSION: Significant degenerative changes are evident in the 1st, 2nd, and 3rd tarsometatarsal joints of the m idfoot. DATA REPOSITORY: RADIATION DOSE DELIVERED:
== END 2023-10-22 02:25 ==
LOC: DI 02:05
PROVIDERS: PCP Nurse Practitioner Adult Health; Visit Provider Podiatrist
DX: M19.072 Primary osteoarthritis, left ankle and foot (principal)
CPT/HCPCS: 73630

== ENCOUNTER 2024-01-23 01:59 | Outpatient (CLI) | payer BC, SELFPAY ==
[2024-01-23 10:17] LABS: Calculated LDL 109 mg/dL (<100); Cholesterol 195 mg/dL (<200); HDL Cholesterol 72 mg/dL (40-60); Triglyceride 70 mg/dL (<150)
[2024-01-23 17:49] LABS: Rheumatoid Factor <8.6 IU/mL (<12.0)
[2024-01-24 12:11] LABS: Cyclic Citrullinated Peptide <2.5 U/mL (<5.0)
== END 2024-01-23 02:00 | disposition home or self-care (01) ==
LOC: LBO 01:59
PROVIDERS: PCP Nurse Practitioner Adult Health; Visit Provider Nurse Practitioner Adult Health
DX: E78.5 Hyperlipidemia, unspecified (principal); M25.541 Pain in joints of right hand; M25.542 Pain in joints of left hand; M79.645 Pain in left finger(s)
CPT/HCPCS: 36415; 80061; 86200; 86431

== ENCOUNTER 2024-04-14 00:32 | Outpatient (CLI) | payer BC, SELFPAY ==
--- NOTE | 2024-04-14 06:45 | DI.RAD_ITS ---
Exam(s) XR FOOT LT COMPLETE EXAM: XR FOOT LT COMPLETE CLINICAL HISTORY: left foot pain,m79.672. TECHNIQUE: 2D digital imaging was performed of the left foot. Three images were obtained. AP, obli que and lateral views were obtained. COMPARISON: CR XR FOOT LT COMPLETE from 10/22/2023 FINDINGS: BONES: No acute fracture is present. No bony destructive lesion is seen. JOINTS: No dislocation present. There are prominent degenerative changes seen at the tarsometatarsal joints, particularly the 1st through 3rd TMT joints. There also degenerative changes seen at the art iculation of the navicular and the cuneiforms. The joint spaces are otherwise well maintained. SOFT TISSUE: Normal. IMPRESSION: Prominent arthrosis in the foot particularly at the tarsometatarsal joints. DATA REPOSITORY: RADIATION DOSE DELIVERED:
== END 2024-04-14 00:52 ==
LOC: DI 00:32
PROVIDERS: PCP Nurse Practitioner Adult Health; Visit Provider Podiatrist
DX: M79.672 Pain in left foot (principal)
CPT/HCPCS: 73630

== ENCOUNTER 2024-07-31 09:07 | Outpatient (CLI) | payer BC, SELFPAY ==
--- NOTE | 2024-07-31 08:15 | DI.RAD_ITS ---
Exam(s) XR KNEE LT 4V AP,LAT,OLIVA,PAT EXAM: XR KNEE LT 4V AP,LAT,OLIVA,PAT CLINICAL HISTORY: LEFT KNEE PAIN. TECHNIQUE: 2D digital imaging was performed. Three views. COMPARISON: CR XR KNEE RT 2V AP,LAT from 08/16/2023 FINDINGS: BONES: No acute fracture is present. No bony destructive lesion is seen. Small enthesophyte at ludivina driceps insertion. JOINTS: There is mild medial femoral tibial joint space narrowing. Minimal periarticular spurring. Patellofemoral joint space is maintained. The knee is normally aligned. A moderate-sized joint effus ion is seen. SOFT TISSUE: Normal. IMPRESSION: Joint effusion. Minimal degenerative changes. DATA REPOSITORY: RADIATION DOSE DELIVERED:
== END 2024-07-31 09:08 | disposition home or self-care (01) ==
LOC: DIORS 09:08
PROVIDERS: PCP Nurse Practitioner Adult Health; Visit Provider Physician Assistant
DX: M25.562 Pain in left knee (principal); M17.12 Unilateral primary osteoarthritis, left knee
CPT/HCPCS: 73564

== ENCOUNTER 2024-09-10 02:06 | Outpatient (CLI) | payer BC, SELFPAY ==
--- NOTE | 2024-09-10 08:55 | DI.MRI_ITS ---
Exam(s) MR LOWER JOINT LT WO EXAM: MR LOWER JOINT LT WO CLINICAL HISTORY: left knee pain,djd,m17.12. TECHNIQUE: Multiplanar multisequence MRI was performed. COMPARISON: CR XR KNEE LT 4V AP,LAT,OLIVA,PAT from 07/31/2024 FINDINGS: BONES: There is abnormal edema in the medial femoral condyle. There is a slight decline avidity in the medial femoral condyle. The findings are consistent with bone contusion and subchondral impaction fracture. JOINTS: A moderate to large joint effusion is present. Two ovoid densities seen anterior to the femoral condyles medially which could represent small loose bodies. Articular cartilage: Patellofemoral joint: Articular cartilage is unremarkable. Medial femoral tibial joint: Diffuse cartilage thinning over the femoral condyle and tibial plateau. Lateral femoral tibial joint: Thinning of the articular cartilage of the posterior aspect of the lateral femoral condyle. Diffuse thinning over the lateral tibial plateau. LIGAMENTS/TENDONS: Anterior Cruciate: The fibers are somewhat indistinct and there is edema but no full-thickness tear. Posterior Cruciate: Unremarkable. Medial Collateral:There is a large amount of surrounding edema but no visible discrete tear. Lateral Collateral ligament complex: Unremarkable. Extensor mechanism: Unremarkable. Medial retinaculum: Unremarkable. Lateral retinaculum: Unremarkable. Popliteus: Unremarkable. MENISCI: The medial meniscus shows blunting of the apex of the posterior horn and body. There is horizontal abnormal signal through the body.. The lateral meniscus is laterally displaced, consistent with degenerative changes. There is some amorphous signal within the body. There is blunting at the apex of the posterior horn which could represent a small tear versus degenerative changes.. MUSCLES: Unremarkable. SOFT TISSUES: Anterior edema. Small Sandy's cyst. IMPRESSION: Subchondral impaction fracture of the medial femoral condyle and contusion involving the medial femoral condyle. Large joint effusion with question of 2 small anterior loose bodies. ACL sprain. Medial collateral ligament sprain versus surrounding fluid. Tear in the body of the medial meniscus and small tear at the apex of the posterior horn of the lateral meniscus. Underlying degenerative changes. Significant cartilage thinning of the medial femoral tibial joint. DATA REPOSITORY:
== END 2024-09-10 02:26 ==
LOC: DI 02:07
PROVIDERS: PCP Nurse Practitioner Adult Health; Visit Provider Student in an Organized Health Care Education/Training Program
DX: M17.12 Unilateral primary osteoarthritis, left knee (principal)
CPT/HCPCS: 73721

== ENCOUNTER 2024-09-10 09:09 | Outpatient (CLI) | payer BC, SELFPAY ==
[2024-09-10 09:39] LABS: HCT 40.2 % (36.0-46.0); HGB 13.4 g/dL (11.2-15.7); MCH 30.6 pg (27.0-33.0); MCHC 33.3 % (32.0-36.0); MCV 92 fL (80-95); MPV 9.1 fL (8.0-11.0); Platelet Count 273 10^3/uL (130-400); RBC 4.38 10^6/uL (3.93-5.22); RDW 13.4 % (11.7-14.6); RDW-SD 46.1 fL; WBC 5.98 10^3/uL (4.4-10.8)
[2024-09-10 09:43] LABS: ESR 6 mm/hr (0-30)
[2024-09-10 11:09] LABS: ALT 27 U/L (14-59); AST 17 U/L (15-37); Albumin 3.9 g/dL (3.4-5.0); Alkaline Phosphatase 54 U/L (46-116); Anion Gap 6.5 mmol/L (3-11); BUN 16 mg/dL (7-18); Bilirubin, Total 0.4 mg/dL (0.2-1.0); CO2 29.5 mmol/L (21.0-32.0); Calcium 8.8 mg/dL (8.5-10.1); Calculated LDL 107 mg/dL (<100); Chloride 102 mmol/L (98-107); Cholesterol 198 mg/dL (<200); Estimated GFR 82.74 (mL/min/1.73m2); Glucose 95 mg/dL (74-106); HDL Cholesterol 53 mg/dL (>or=50); Potassium 4.3 mmol/L (3.5-5.1); Sodium 138 mmol/L (136-145); TSH (W/Ref FT4) 3.38 uIU/mL (0.36-3.74); Total Protein 7.2 g/dL (6.4-8.2); Triglyceride 193 mg/dL (<150)
[2024-09-10 11:35] LABS: C-Reactive Protein < 0.50 mg/dL (<or=0.5)
[2024-09-11 09:12] LABS: Lyme Ab w Rflx to Lyme Confirm Negative (Negative)
[2024-09-14 23:25] LABS: B. miyamotoi PCR Negative (Negative); Babesia divergens/MO-1 Negative (Negative); Ehrlichia muris eauclairensis Negative (Negative)
== END 2024-09-10 09:10 | disposition home or self-care (01) ==
LOC: LBO 09:09
PROVIDERS: PCP Nurse Practitioner Adult Health; Visit Provider Student in an Organized Health Care Education/Training Program
DX: Z00.00 Encounter for general adult medical examination without abnormal findings (principal); Z51.81 Encounter for therapeutic drug level monitoring; E03.9 Hypothyroidism, unspecified; E78.00 Pure hypercholesterolemia, unspecified; M25.562 Pain in left knee
CPT/HCPCS: 36415; 80053; 80061; 85027; 85652; 87798; 84443; 86140; 86618

== ENCOUNTER 2024-11-05 04:20 | Outpatient (CLI) | payer BC, SELFPAY ==
[2024-11-05 15:15] LABS: HCT 42.1 % (36.0-46.0); HGB 14.2 g/dL (11.2-15.7); MCH 31.3 pg (27.0-33.0); MCHC 33.7 % (32.0-36.0); MCV 93 fL (80-95); MPV 9.2 fL (8.0-11.0); Platelet Count 274 10^3/uL (130-400); RBC 4.54 10^6/uL (3.93-5.22); RDW 13.3 % (11.7-14.6); RDW-SD 45.3 fL; WBC 7.58 10^3/uL (4.4-10.8)
[2024-11-05 15:50] LABS: Anion Gap 5.7 mmol/L (3-11); BUN 16 mg/dL (7-18); CO2 29.3 mmol/L (21.0-32.0); Calcium 9.4 mg/dL (8.5-10.1); Chloride 105 mmol/L (98-107); Estimated GFR 82.74 (mL/min/1.73m2); Glucose 104 mg/dL (74-106); Potassium 4.1 mmol/L (3.5-5.1); Sodium 140 mmol/L (136-145)
== END 2024-11-05 04:21 | disposition home or self-care (01) ==
LOC: LBO 04:20 → LBN 15:09
PROVIDERS: PCP Nurse Practitioner Adult Health; Visit Provider Student in an Organized Health Care Education/Training Program
DX: M17.12 Unilateral primary osteoarthritis, left knee (principal); Z01.818 Encounter for other preprocedural examination
CPT/HCPCS: 80048; 85027

== ENCOUNTER 2024-11-17 07:15 | Day surgery (SDC) | payer BC, SELFPAY ==
[2024-11-17] VITALS (25 sets, daily range): BP systolic 119–159; BP diastolic 48–69; PULSE 50–87; RESP 11–26; TEMP 36–36.5; O2SAT 97–100; BMI 30.7
--- NOTE | 2024-11-17 07:08 | PDOC.DSDIS_ITS ---
Date of service: 11/17/24 Discharge Plan Disposition Patient Disposition: Home Condition: Good Discharge Details Reason For Visit: Left knee DJD Attending Provider: Damien Porter Primary Care Provider: Laila Baldwin Home Meds and New Rx's Prescriptions: New aspirin 81 mg tablet,delayed release (DR/EC) 81 mg PO BID 30 Days Qty: 60 0RF celecoxib [Celebrex] 200 mg capsule 200 mg PO BID PRNQty: 60 0RF Rx Instructions: Take one tablet twice daily for pain and inflammation docusate sodium [Colace] 100 mg capsule 100 mg PO BID Qty: 28 0RF pantoprazole 40 mg tablet,delayed release (DR/EC) 40 mg PO DAILY Qty: 14 0RF Rx Instructions: Take one tablet once daily dexamethasone 4 mg tablet 4 mg PO DAILY Qty: 2 0RF Rx Instructions: Take one tablet once daily for two days gabapentin 300 mg capsule 300 mg PO QHS Qty: 14 0RF Rx Instructions: Take one tablet at bedtime cyclobenzaprine 5 mg tablet 5 mg PO QHS PRNQty: 14 0RF acetaminophen 500 mg tablet 500 mg PO Q6H PRN (Reason: pain) Qty: 60 2RF hydrocodone-acetaminophen 7.5-300 mg tablet 1 tab PO Q4H MDD 6 tablets PRNQty: 18 0RF Rx Instructions: Take one tablet up to every 4 hours as needed for severe postoperative pain Continued estradiol 1 mg tablet 2 mg PO DAILY Patient Comments: Rx'ed by sweat box attendant Dr. Dc Alonso RespiClick 90 mcg/actuation aerosol powdr breath activated 2 inh inhalation Q6H PRN (Reason: shortness of breath or wheezing) Qty: 1 12RF ciow-wlljx-ign-[id number]-hyal-litzy bor 750 mg-100 mg- 25 mcg tablet 2 tab PO DAILY atorvastatin 20 mg tablet See Rx Instructions .ROUTE .COMPLEX Qty: 90 3RF Dose Instruction: TAKE ONE TABLET BY MOUTH EVERY DAY AT BEDTIME Rx Instructions: TAKE ONE TABLET BY MOUTH EVERY DAY AT BEDTIME Discontinued naproxen 250 mg tablet 250 mg PO BID PRN celecoxib [Celebrex] 200 mg capsule 200 mg PO BID Qty: 60 1RF Discharge Instructions Additional Instructions: Total Knee Discharge Instructions Activity: The most important activity is to walk and to work on gentle motion (both flexion and extension). You should try to take short walks a few times a day. It is important that when resting you work on keeping the knee straight. Avoid putting a pillow behind the knee as this will encourage flexion. Work on range of motion exercises as provided by Physical Therapy. - Start outpatient physical therapy within 2 weeks. - You should wear the DARYL hose on both legs for 2 weeks. You may remove these at night. You may also use any compression sock in place of the DARYL hose. - Utilize [employer] to review exercises, see videos on exercises and obtain basic information pertaining to your surgery and your recovery. Dressing: Remove the Toni wrap by 2 days after your surgery and put on the DARYL stocking given to you from the hospital. Keep the surgical dressing (underneath the TONI wrap) in place for at least one week. After the first week it may be removed and replaced with light gauze and tape or nothing. The wound and dressing may get wet after 3 days but avoid soaking the dressing or otherwise it will need to be changed. Many people prefer covering the dressing with cling wrap (saran wrap) to minimize it from getting soaked. If it gets wet, just pat dry. If it starts to peel off then it will need to be changed. Medications: - You should take Tylenol and anti-inflammatory Celebrex as your primary pain control medications. If the Celebrex is too expensive or not covered, please call the office for another alternative (Advil/Ibuprofen or Naproxen/Aleve) - You have been prescribed a stronger pain medication Hydrocodone-Acetaminophen for breakthrough pain, take as needed as prescribed. - You have also been prescribed a stomach acid reduction agent Pantoprozole to help reduce stomach acid and reflux. - You have been prescribed Gabapentin to take at night for restlessness and nerve pain. - You have been prescribed Cyclobenzaprine for muscle spasms to take at night. - You will be taking Aspirin 81mg twice a day for DVT prevention unless instructed otherwise. - You have also been prescribed Decadron to take to control post-operative nausea and pain. You will start this tomorrow. - If you have constipation you should take Colace (which has been prescribed) or Miralax (which is available [id number]). It takes most people 3-4 days to have a bowel movement. Follow-up: 2 weeks If you have any acute concerns or questions, please do not hesitate to contact the office at [phone]. You may contact Dr. Porter with any questions after hours through the hospital at [phone] or on his cell phone at [phone]. Referrals: Damien Porter MD [ [facility] STAFF PHYSICIAN, Orthopaedic Surgical] Equipment/Supplies: Walker Activity:: Elevate Remove Dressings/Wound Care:: Do Not Remove Shower/Bathe:: Cover Diet:: As Tolerated Discharge Orders Discharge Orders: Discharge Order (Routine); Ordered 11/17/24 Ordered By: Marion Zuniga
[2024-11-17] MEDS: Acetaminophen 500 MG TAB 1000 MG PO (07:48)
[2024-11-17] MEDS: Celecoxib 200 MG CAP 400 MG PO (07:48)
[2024-11-17] MEDS: Gabapentin 300 MG CAP PO (07:48)
[2024-11-17] MEDS: Lactated Ringers 1,000 ML 80 ML IV (07:59)
--- NOTE | 2024-11-17 08:00 | W.ANESPRE ---
General Info Date of Service Date Performed: 11/17/24 Height: 5 ft 7 in Weight: 89.1 kg Body Mass Index (BMI): 30.7 Surgical Procedure: Operation Date: 11/17/24 09:25 Proposed Procedure Side Surgeon p Knee Total Arthroplasty, Cementless No Patella Left Damien Porter MD Actual Procedure Side Surgeon p Knee Total Arthroplasty, Cementless No Patella Left Damien Porter MD Pre-Op Diagnosis Post-Op Diagnosis Left knee DJD Meds Allergies and Home Medications Allergies Allergy/AdvReac Type Severity Reaction Status Date / Time formaldehyde Allergy Intermediate respiratory Verified 11/17/24 07:40 Home Medication ?Medication ?Instructions ?Recorded estradiol 1 mg tablet 2 mg PO DAILY 03/18/20 albuterol sulfate 90 mcg/actuation 2 inh inhalation Q6H PRN shortness 02/11/24 breath activated powder inhaler of breath or wheezing #1 ea (ProAir RespiClick) glucosamine 750 mg-chondroit 100 2 tab PO DAILY 03/16/24 mg-msm-D3 25 gtw-nojv-sua bor tablet atorvastatin 20 mg tablet See Rx Instructions .Route 08/17/24 .COMPLEX #90 tabs acetaminophen 500 mg tablet 500 mg PO Q6H PRN pain #60 tabs 11/17/24 aspirin 81 mg tablet,delayed 81 mg PO BID 30 days #60 tabs 11/17/24 release celecoxib 200 mg capsule (Celebrex) 200 mg PO BID PRN #60 caps 11/17/24 cyclobenzaprine 5 mg tablet 5 mg PO QHS PRN #14 tabs 11/17/24 dexamethasone 4 mg tablet 4 mg PO DAILY #2 tabs 11/17/24 docusate sodium 100 mg capsule 100 mg PO BID #28 caps 11/17/24 (Colace) gabapentin 300 mg capsule 300 mg PO QHS #14 caps 11/17/24 hydrocodone 7.5 mg-acetaminophen 1 tab PO Q4H PRN #18 tabs 11/17/24 300 mg tablet pantoprazole 40 mg tablet,delayed 40 mg PO DAILY #14 tabs 11/17/24 release Current Visit Medications: Current Medications Generic Name Dose Route Start Last Admin Trade Name Freq PRN Reason Stop Dose Admin Acetaminophen 1,000 mg 11/17/24 06:00 11/17/24 07:48 Acetaminophen 500 Mg Tab PO 11/17/24 23:59 1,000 mg PREOP JUANCHO Administration Hydrocodone Bitart/Acetaminophen 1 tab 11/17/24 07:34 Hydrocodone 7.5/Acetaminophen 325 Tab PO 12/17/24 07:33 Q4H PRN PRN Celecoxib 400 mg 11/17/24 06:00 11/17/24 07:48 Celecoxib 200 Mg Cap PO 11/17/24 23:59 400 mg PREOP JUANCHO Administration Gabapentin 300 mg 11/17/24 06:00 11/17/24 07:48 Gabapentin 300 Mg Cap PO 11/17/24 23:59 300 mg PREOP JUANCHO Administration Hydromorphone HCl 0.5 mg 11/17/24 07:07 Hydromorphone 2 Mg/Ml Syr IVP 12/17/24 07:06 Q2H PRN PRN Ringer's Solution 1,000 mls @ 80 mls/hr 11/17/24 06:00 11/17/24 07:59 IV 11/17/24 23:59 80 mls/hr INFUSION JUANCHO Administration Cefazolin Sodium/Dextrose 2 gm in 50 mls @ 100 mls/hr 11/17/24 06:00 Ancef Duplex IVPB 11/17/24 23:59 PREOP JUANCHO Tranexamic Acid/Sodium Chloride 1,000 mg in 100 mls @ 600 mls/hr 11/17/24 06:00 IVPB 11/17/24 23:59 PREOP JUANCHO Cefazolin Sodium/Dextrose 1 gm in 50 mls @ 100 mls/hr 11/17/24 08:00 Ancef Duplex IVPB 11/18/24 00:29 Q8H JUANCHO IV Miscellaneous Supplies 1 each 11/17/24 06:00 Iv Access IV 11/17/24 23:59 DIRECTED JUANCHO Sodium Chloride 0 ml 11/17/24 06:00 Normal Saline Flush 10 Ml Syr IV 11/17/24 23:59 PRN PRN Sodium Chloride 0 ml 11/17/24 06:00 Normal Saline 10 Ml Vial IJ 11/17/24 23:59 DIRECTED PRN Sterile Water 0 ml 11/17/24 06:00 Water,Injection,Sterile 10 Ml Vial IJ 11/17/24 23:59 DIRECTED PRN Tranexamic Acid 1,300 mg 11/17/24 07:07 Tranexamic Acid 650 Mg Tab PO 12/17/24 07:06 ONCE PRN postoperative PFSH Active Problems Active Problems: Problem Status Onset Code History of total left knee replacement Acute 11/17/24 Z96.652 Osteochondral defect of condyle of femur Acute M95.8 Pain in left foot Acute M79.672 Arthritis of left midfoot Acute M19.072 Post-traumatic arthritis of left foot Acute M19.172 Encounter for screening colonoscopy Acute Z12.11 Arthritis of carpometacarpal (CMC) joint of both thumbs Acute ~07/2023 M18.0 Hypercholesterolemia with LDL greater than 190 mg/dL Acute ~05/2023 E78.00 Left wrist tendonitis Acute M77.8 Vasomotor acroparesthesia Acute I73.89 Cardiac murmur Acute ~03/2023 R01.1 Femoroacetabular impingement of right hip Acute M25.851 Anxiety Acute 08/03/11 F41.9 Subclinical hypothyroidism Chronic E03.9 Hyperlipidemia Chronic 02/2019 E78.5 Diverticulosis Acute K57.90 History of nicotine dependence Chronic Z87.891 Asthma Chronic 05/22/13 J45.909 Medical History Medical History COVID (~12/03/23) Hyperplastic colon polyp (~10/2023) Tubular adenoma of colon (~10/2023) Hx of contraceptive use mirena Tobacco use disorder QUIT 2014 (1 PPD x 20 years= 20 PY); Zyban, hypnotism Asthma Surgical History Surgical History History of total right knee replacement (08/02/21) S/P colonoscopy (~10/2023) 2012- adenomatous polyp Tubal Ligation, Laparoscopic Endometrial Biopsy (07/25/15) Cholecystectomy Arthroscopy (02/21/15) Dr Walker [facility] [place] R elbow Tobacco Smoking/Tobacco Use Status: Former Tobacco Use Passive smoking exposure: Yes Second hand exposure: Yes Alcohol Alcohol Intake: current Alcohol intake frequency: a few times a week Alcohol type: hard liquor Substance Use Substance use: Occasionally Substance use type: marijuana Details: Last used Marijuana on 11/15/24 Vital Signs and Lab Results Vital Signs Most Recent Vital Signs in EMR: Most Recent Vital Signs Temp Pulse Resp BP Pulse Ox 36.5 C 64 16 150/58 H 99 11/17/24 07:41 11/17/24 07:41 11/17/24 07:41 11/17/24 07:41 11/17/24 07:41 Lab Results Complete Blood Count: WBC, (4.4-10.8) 7.58 10^3/uL 11/05/24, 14:40 RBC, (3.93-5.22) 4.54 10^6/uL 11/05/24, 14:40 Hgb, (11.2-15.7) 14.2 g/dL 11/05/24, 14:40 Hct, (36.0-46.0) 42.1 % 11/05/24, 14:40 Plt Count, (130-400) 274 10^3/uL 11/05/24, 14:40 Complete Metabolic Panel: Sodium, (136-145) 140 mmol/L 11/05/24, 14:40 Potassium, (3.5-5.1) 4.1 mmol/L 11/05/24, 14:40 Chloride, (98-107) 105 mmol/L 11/05/24, 14:40 Carbon Dioxide, (21.0-32.0) 29.3 mmol/L 11/05/24, 14:40 BUN, (7-18) 16 mg/dL 11/05/24, 14:40 Creatinine, (0.55-1.02) 0.8 mg/dL 11/05/24, 14:40 Est GFR (CKD-EPI 2020), (mL/min/1.73m2) 82.74 11/05/24, 14:40 Calcium, (8.5-10.1) 9.4 mg/dL 11/05/24, 14:40 Glucose, (74-106) 104 mg/dL 11/05/24, 14:40 Imaging and Studies Imaging and Studies Study information below may be from another EMR and interpreted by another provider. Please see original notes in EMR for more complete details. Stress Test Summary: 2019: Stress ECG Conclusion 1. Patient exercised for 10 minutes and 24 seconds (12.45 METS) 2. Exercise was stopped due to fatigue. 3. Rate-pressure product was 25,000. 4. There was no evidence of ischemia on ECG during this level of stress. 5. The Mckeon Score (10) estimates an annual cardiovascular mortality of 0% and a five year survival of 96%. Using the Mckeon Score there is a low probability of any angiographic coronary disease. Echocardiogram Summary: 05/04: LVEF 60-65%, trace MR/TR. Anesthesia Assessment and Plan Anesthesia History Personal History: No History of Anesthesia Complications Family History: No Family History of Anesthesia Complications Exercise Tolerance Exercise Tolerance: Metabolic Equivalents>4 Pertinent Negatives Pertinent Negatives: No Major Cardiovascular Symptoms or Complaints and No Major Pulmonary Symptoms or Complaints Cardiac & Pulmonary Exam Cardiac Exam: Heart Murmur Present Pulmonary Exam: Clear Bilateral Breath Sounds Implantable Cardiac Device Does patient have a Pacemaker or an ICD?: No Airway Exam Known Difficult Airway: No Mallampati Class: 1 Mouth Opening: Normal (> 3cm) Thyromental Distance: Less than 3 cm Neck Range of Motion: Full ROM Neck Circumference: Normal Teeth Condition: Removable Dentures/Plates Lower (partial) ASA Classification ASA Score: ASA 2 Emergency Case?: No NPO Status NPO Status: NPO Clears >2 hours, Solids >8 hours Anesthesia Plan Resuscitation Status: Full Code Anesthesia Technique: Spinal Anesthesia Airway Planned: Natural Airway Monitors Used: Standard Monitors
[2024-11-17] MEDS: ceFAZolin 2 GM/50 ML BAG IVPB (08:56)
[2024-11-17] MEDS: TRANEXAMIC ACID/SOD. CHL. 1,000 MG/100 ML BAG 600 MG IVPB (09:03)
--- NOTE | 2024-11-17 09:30 | W.ANESNERVE ---
Nerve Block Single Injection Procedure Date and Time Date Performed: 11/17/24 Procedure Start: 08:27 Location Where Procedure Performed Procedure Location: Day Surgery Unit Reason Performed: Postoperative Analgesia Requesting Provider: Damien Porter Timeout Performed Timeout Performed: Yes Monitoring Used ECG, Blood Pressure, SpO2 and See EMR for corresponding vital signs Sterility Sterility: Hand Hygiene, Surgical Cap, Surgical Mask, Sterile Gloves and Chlorhexidine Sedation Given During Procedure Sedation Given (Indicate Dose Given): Versed IV Dose:: 2mg Patient Mental Status Patient Mental Status: Sedate with meaningful communication Nerve Block 1st Nerve Block: Laterality: Left Block Type: Adductor Canal Ultrasound Image Saved?: Yes Needle / Catheter Used: 100mm SonoPlex II Local Anesthetic Bolus (Indicate Dose Given): Lidocaine used for local infiltration of skin, Injected in 3-5ml increments after negative blood aspiration, Bupivacaine 0.25% Dose:: 10mL and Exparel Dose:: 10mL Additives (Indicate Dose Given): None Ultrasound: Sterile probe cover and gel used Nerve Stimulator: Supplement to Ultrasound use and No twitch or parasthesia noted < 0.5 mA Paresthesia: None Procedure Tolerated: No Complications Procedure Outcome: Successful Performed By: Stephany Last
--- NOTE | 2024-11-17 10:39 | ROE_ITS ---
Operative Note Operative Note PRE-OP DIAGNOSIS: Left Knee Osteoarthritis POST-OP DIAGNOSIS: same PROCEDURE: Left Total Knee Replacement SURGEON: Damien Porter STRATEGY EXECUTION CONSULTANT: Marion Zuniga ANESTHESIA TYPE: Spinal Refer to Anesthesia Record ESTIMATED BLOOD LOSS: 100 PATHOLOGY: none sent TOURNIQUET TIME: 0 COMPLICATIONS: None Patient was transported to: PACU Patient's condition: stable Implants: 1. Depuy Attune Cementless Cruciate Retaining Femoral Component, Size 7 2. Depuy Attune Cementless Fixed Bearing Tibial Component, Size 5 3. Depuy Attune 7x5mm CR/FB Poly Indications: I have seen Melia in clinic for symptoms of knee arthritis, confirmed with radiographic findings. She has exhausted nonoperative methods and was having significant limitations in daily function and desired better function and less pain. I discussed the technical details of a knee replacement. I explained the risks of the procedure to include, but not limited to, bleeding, infection, pain, stiffness, fracture, damage to nerves and vessels, damage to muscles and tendons, loosening, need for repeat procedure, blood clot and cardiopulmonary demise. Despite these risks, Melia elected to proceed. Findings: There was significant signs of arthritis throughout the knee with a large swath of exposed bone of the medial femoral condyle and a focal area of full-thickness cartilage loss over the central weightbearing portion of the lateral femur. Procedure Description: Melia was greeted in the preoperative holding area where the correct side was identified and marked. The consent was reviewed with the patient and signed. The history and physical was updated. All questions were answered. Preoperative medications were administered: Acetaminophen 1000mg, Celebrex 400mg, and Gabapentin 300mg. An adductor canal block was then administered by the anesthesia team in the DSU. Melia was taken back to the operating room. A spinal anesthestic was then administered. The patient was placed into the supine position on the operating room table. Posts were placed for positioning during the procedure. All bony prominences were well padded. Prophylactic antibiotics in the form of Cefazolin were administered. 1g of Tranxemic Acid was given intravenously within 30 minutes of incision. The left leg was then prepped with Chloraprep and draped in a standard fashion with impervious stockinette. A second prep with Chloraprep was performed prior to application of Iodine impregnated skin protection. A timeout to confirm correct identity, side and site, procedure, allergies, anesthesia, and medical concerns was performed. With the knee in some flexion, a midline incision was made overlying the knee. Full thickness skin flaps were raised once the extensor mechanism was encountered. These were raised medially and laterally. Any bleeding was controlled with electrocautery. Once the extensor mechanism was fully exposed, a medial parapatellar arthrotomy was performed in a flexed position. All bleeding from the arthrotomy and the geniculate arteries was coagulated. A medial subperiosteal peel was performed with electrocautery to the midcoronal plane. The fat pad was removed while keeping the patellar tendon protected. The anterior distal femur synovium was removed for later visualization. The ACL and PCL were resected and the anterior horn of the lateral meniscus was transected. The knee was then flexed with the patella everted. There is noted to be complete loss of cartilage over the central weightbearing portion of the medial femur and a focal area of full- thickness cartilage loss over the weightbearing portion of the lateral femur. Using a step drill, and based on preoperative templating, the femoral canal was entered. This was done with a step drill without any difficulty. The intramedullary distal femoral cut guide was inserted, set to a 5 degree valgus cut and 9mm cut thickness. The distal femoral cut guide was then held in position and pinned. With the soft tissues protected, the distal cut was performed. This was passed over a few times to ensure a planar cut. I then turned attention to the tibia. The extramedullary guide was placed onto the leg. The distal aspect was slid medial to adjust for position of center of ankle and stay in line with shaft of the tibia. Approximately 5 degrees of posterior slope was kept in the proximal cutting guide. The center of the guide was aligned with the PCL. The stylus was used to assess cut thickness. The medial side, most involved side, was set for a 5-6mm cut, corresponding to 9mm laterally. This was then held in position and pinned into place with 2 additional pins and a cross pin for stability. The medial and lateral collateral ligaments were protected and the cut was performed. With this completed, it was assessed and noted to be of appropriate dimensions. The guide was removed. A spacer block was inserted and the knee was brought into extension. The 5mm spacer block provided full extension, without hyperextension and with stability of both the medial and lateral collateral ligaments was assessed. The pins from the femur and the tibia were then removed. The distal femur was then sized. The anterior stylus was placed onto the lateral ridge of the anterior femur. This indicated a size 7 femur. The external rotation of the guide was adjusted to 0 degrees to match the epicondylar axis, perpendicular to [facility]?s line. The 4-in-1 cutting guide was the placed. The posterior medial femur cut was evaluated and appeared of good thickness. The spacer block was inserted underneath the cutting guide and stability was confirmed in 90 degrees of flexion. An kulwant wing was used to confirm appropriate position of the anterior cut to avoid notching. This cutting guide was ensured to be flush on the cut surface and then pinned into place with headed pins. While protecting the soft tissues, quad tendon, and collateral ligaments, the anterior and posterior cuts were performed with a saw. The central two pins were removed and the posterior and anterior chamfers were cut next. The notch-cutting guide was placed. This was pinned to lateralize the femoral component as much as possible while keeping it flush on the cut surface. This was then pinned into position. A reciprocating saw was used to make the notch cut. A rasp smoothed the cut surfaces. The medial and lateral menisci were removed. A trial femoral component was then inserted, impacted down to the cut surfaces, and the lug holes were drilled. A provisional trial tibial component was placed and the knee was brought through range of motion. There was noted to be excellent extension and flexion. There was no significant instability. The patella was tracking without thumbs. A size 5mm polyethylene component provided the best range of motion and stability with less than 2mm gapping with medial and lateral stress and full extension without significant hyperextension. The tibial cut surface was fully exposed. The tibia was then sized as a 5. The tibia had been previously marked during trialing to correspond to the center of the tibial component to help with rotation. The trial was aligned to this sharon, approximately rotated to the medial 1/3rd of the tibial tubercle. The trial was pinned into place. The tibia was prepared with a reamer and a keel punch and lug holes. The trial components were removed. The final components were opened on the back table. The periosteal and capsular tissues, especially posteriorly, around the knee were then systematically injected with a periarticular cocktail consisting of 246mg of Ropivacaine, 0.5mg of Epinephrine, 0.08mg of Clonidine, and 30mg of Ketorolac, diluted to 100cc. On the back table, with the implants opened. The cementless knee components were placed. Starting with the tibial component, the tibia was subluxed anteriorly and the lug holes of the component were lined up. The tibia was then impacted with an impactor and mallet until the tibial component was in contact with the tibia. Then, the femoral component was inserted. The lug holes were aligned and the component was impacted into position. The final polyethylene component was inserted. The knee was irrigated with Surgiphor Betadine solution. This was allowed to sit in the knee for 3 minutes and then it was irrigated out with saline. The patella was tracking with a no-thumbs technique. A complete synovectomy was performed around the periphery of the patella. The capsule was then reapproximated with a No. 1 Vicryl at multiple locations. The capsule was finally closed with a No. 2 Stratafix, barbed suture. Deep tissues were then reapproximated with 0 Vicryl and 2-0 Vicryl. The skin was closed with a running 3-0 Monocryl in a subcuticular fashion. This was reinforced with skin glue. A Mepilex silver dressing was applied along with a [id number] DARLENE wrap. A CryoCuff was applied. Melia was transferred to the hospital bed without difficulty an suffering no apparent complication. Melia has a good prognosis. Physical therapy will start today and without restrictions, weight-bearing as tolerated. Aspirin 81mg BID will be used for DVT prophylaxis. Date of Procedure: 11/17/24
[2024-11-17] MEDS: Tranexamic Acid 650 MG TAB 1300 MG PO (11:37)
--- NOTE | 2024-11-17 11:50 | PT.INIE ---
PT Notes Visit Reasons: Left knee DJD Physical Therapy Day Surgery Initial Evaluation Date: 11/17/2024 Referring Doctor: BINA Kerns PT Orders: PT CONSULT: S/P Ortho Surgery Precautions: WBAT through L LE with AD. Patient Profile/Admitting Diagnosis: Melia is a 64-year-old female with degenerative joint disease of the left knee and osteochondral defect of the left femoral condyle. She is status post left total knee arthroplasty on postoperative day 0. PMHX: All Active Problems Osteochondral defect of condyle of femur (Acute) Left knee DJD (Chronic) 80 mg Depo-medrol injection: 07/31/24 Pain in left foot (Acute) Arthritis of left midfoot (Acute) Post-traumatic arthritis of left foot (Acute) Encounter for screening colonoscopy (Acute) Arthritis of carpometacarpal (CMC) joint of both thumbs (Acute ~07/2023) Hypercholesterolemia with LDL greater than 190 mg/dL (Acute ~05/2023) Left wrist tendonitis (Acute) Vasomotor acroparesthesia (Acute) [employer] 03/27/23 Cardiac murmur (Acute ~03/2023) ECHO mild MR & TR Femoroacetabular impingement of right hip (Acute) Anxiety (Acute 08/03/11) Intermittent, last episode 02/2019, exacerbated by physical symptoms (asthma); counseling effective Subclinical hypothyroidism (Chronic) Hyperlipidemia (Chronic 02/2019) LDL 200, statin indicated Lifetime risk ASCVD 39%Diverticulosis (Acute) History of nicotine dependence (Chronic) Quit 2015Asthma (Chronic 05/22/13) Spirometry 2008, mild obstructive airway disease prednisone 2013 Medical History COVID (~12/03/23) Hyperplastic colon polyp (~10/2023) Tubular adenoma of colon (~10/2023) Hx of contraceptive use mirena Tobacco use disorder QUIT 2014 (1 PPD x 20 years= 20 PY); Zyban, hypnotism Asthma Surgical History History of total right knee replacement (08/02/21) S/P colonoscopy (~10/2023) 2013- adenomatous polyp Tubal Ligation, Laparoscopic Endometrial Biopsy (07/25/15) Cholecystectomy Arthroscopy (02/21/15) Dr Walker [facility] [place] R elbow Social History/Home Situation: Lives in a private home with three steps to enter with rails on B sides. independent with all mobility ADLs prior to surgery. 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 Equipment Owned/DME: [employer] Subjective: Tearful but able to motivate self to complete today's evaluation. Objective: General Observation: DARLENE wraps to L LE. [place]uff to L knee. Mental Status: Alert and orineted x 4 Pain: 6-7/10 at rest and with movement ROM: Right Lower Extremity: Hip flexion WFL. Hip abduction WFL. Knee flexion WFL. Ankle dorsiflexion WFL. Ankle plantarflexion WFL. Left Lower Extremity: Hip flexion WFL. Hip abduction WFL. Knee flexion 30 degrees to 90 degrees. Knee extension -30 degrees. Ankle dorsiflexion WFL. Ankle plantarflexion WFL. Strength: Right Lower Extremity: Hip flexors 5/5. Hip abductors 5/5. Knee flexors 4-/5. Knee extensors 4-/5. Ankle dorsiflexors 5/5. Ankle plantarflexors 5/5. Left Lower Extremity:Hip flexors 4-/5. Hip abductors 4-/5. Knee flexors 3-/5. Knee extensors 3-/5. Ankle dorsiflexors 5/5. Ankle plantarflexors 5/5. Sensation: Intact as to pain and light pressure in B LE Bed Mobility/Transfers: Minimal cueing provided for use of B hands as needed for support, movement sequence, AD management, and posture to reduce fall risk and minimize pain report Supine to sit stand by assist Sit to stand conatct guard assist Stand to sit stand by assist with FWW Bed to chair stand by assist with FWW Gait: Facilitate safe and correct performance of level surface ambulation covering a distance of 100 feet with reciprocal swing through gait pattern requiring only standby assist using front wheeled walker with minimal verbal cueing for limb movement sequence, AD management, and posture to minimize pain report and reduce fall risk. Stairs: Guided patient with safe and correct negotiation of 3 x 4 inch steps and 2 x 6 inch steps while holding onto bilateral rails with step to gait pattern requiring minimal verbal cueing for limb movement sequence, increased knee flexion on the left during each ascent, hand placement, and posture to minimize pain reported reduce fall risk. Balance: Static Sitting: Normal Dynamic Sitting: Normal Static Standing: Fair Dynamic Standing: Fair Special Tests: Mobility Limitations Standardized Measure [facility] AM-PAC 6 clicks Basic Mobility Inpatient Short Form: Raw Score: 21 CMS Score: 29% deficit Informed Consent/Education: Patient instructed in purpose of PT consult. Packet containing TKA exercise protocol has been given to patient. Education and training on initial set of exercises that can be done at home have been completed with patient. Trained patient with correct performance of exercises below to maximize motor control, joint flexibility, soft tissue extensibility of the L knee musculature: Access Code: [email or web address] URL: [email or web address]: Prepared by: Avis Gilman Exercises - Supine Quad Set - 1 x daily - 7 x weekly - 1 sets - 10 reps - 5 hold - Supine Heel Slide - 1 x daily - 7 x weekly - 1 sets - 10 reps - 5 hold - Supine Ankle Pumps - 1 x daily - 7 x weekly - 1 sets - 10 reps - 5 hold - Small Range Straight Leg Raise - 1 x daily - 7 x weekly - 1 sets - 10 reps - 5 hold - Seated March - 1 x daily - 7 x weekly - 1 sets - 10 reps - 5 hold Assessment: Patient requires the use of a front-wheeled walker for all mobility ADL performance to maximize independence and reduce fall risk. Was able to toelrate session despite having some episodes of tearfulness/strong emotions post surgery. Patient presents with clinical signs and symptoms consistent with current/admitting diagnoses that have resulted to mobility limitations, gait instability, generalized weakness, and impairment of motor control as demonstrated by the following impairment level findings: 1. Decreased strength to left knee major muscle groups 2. Impaired standing balance 3. Limitation of joint range of motion in left knee Impairments are contributing to the following functional limitations: 1. Inability to safely ambulate without assistive device 2. Increase completion time for mobility ADL performance 3. Increased fall risk Patient is assessed as a 91734 moderate complexity based on the following: History: 64-year-old female with impairment level findings, functional limitations, and past medical history as indicated above Examination: Demonstrable impairment in strength, balance, and mobility level with underlying impairments and functional limitations as documented above Presentation: Evolving Decision Makin moderate complexity Goals: N/A. PT evaluation and 1-2 treatment sessions only for functional mobility training using recommended AD and for HEP instruction. Plan of Care/Treatment Plan: N/A. PT evaluation and 1-2 treatment session only for functional mobility training using recommended AD and for HEP instruction. DISCHARGE RECOMMENDATIONS: [] TREATMENT CODE/TIME: 26653 20 minutes for 1 unit, 11656 x 23 minutes for 2 units (11:50-12:33). Thank you for the opportunity to participate in the care of this patient. Avis Gilman PT, DPT, CLT [facility] [place], [place]
--- NOTE | 2024-11-17 12:00 | W.ANESPOSTOP ---
Postoperative Evaluation Date, Time and Location Date Performed: 11/17/24 Time Performed: 12:00 Patient Location: Day Surgery Unit Vital Signs Most Recent Imported Vital Signs: Most Recent Vital Signs Temp Pulse Resp BP Pulse Ox 36.0 C L 55 L 18 135/69 100 11/17/24 11:39 11/17/24 11:39 11/17/24 11:39 11/17/24 11:13 11/17/24 11:39 Pain Score Most Recent Pain Score: Most Recent Pain Score Pain Level 7 11/17/24 11:39 Assessment Mental Status: Awake (Alert & Oriented to Patient Baseline) Airway and Respiratory Function: Patent airway with normal (patient baseline) respiratory exam Cardiovascular Function: Hemodynamically Stable Hydration Status: Adequately Hydrated Nausea & Vomiting: No Nausea or Vomiting Pain: Pain is Moderate or Severe Postoperative Pain Management: Pain being addressed with medication Peripheral Nerve Block: Regional nerve block not resolved at time of post operative discharge
== END 2024-11-17 13:03 | disposition home or self-care (01) ==
LOC: SUR 07:15
PROVIDERS: PCP Nurse Practitioner Adult Health; Visit Provider Student in an Organized Health Care Education/Training Program
PROC: (CPT 27447; principal; 2024-11-17 09:15)
DX: M17.12 Unilateral primary osteoarthritis, left knee (principal); G89.18 Other acute postprocedural pain
CPT/HCPCS: 27447; 64447; 97162; 97530; C1776; J0665; J0666; J0690; J2003; J2250; J2371; J2401; J2405; J2704

== ENCOUNTER 2024-11-30 11:51 | Outpatient (CLI) | payer BC, SELFPAY ==
--- NOTE | 2024-11-30 09:05 | DI.RAD_ITS ---
Exam(s) XR KNEE LT 1V XR STANDING ALIGNMENT EXAM: XR STANDING ALIGNMENT and XR knee LT 1 V CLINICAL HISTORY: 1ST POST OP S/P L TKA. TECHNIQUE: 2D digital imaging was performed. Five images were obtained. COMPARISON: CR XR STANDING ALIGNMENT from 08/17/2021 CR XR KNEE RT 2V AP,LAT from 08/16/2023 CR XR KNEE LT 4V AP,LAT,OLIVA,PAT from 07/31/2024 MR MR LOWER JOINT LT WO from 09/10/2024 FINDINGS: BONES: The hips are well maintained. There are bilateral total knee arthroplasties. Since the prior examination, there has been interval placement of a left total knee arthroplasty. The orthopedic hardware appears in good position. There is no evidence of loosening. The ankles are well maintained. There is no significant leg length discrepancy. SOFT TISSUE: Normal. IMPRESSION: Stable bilateral total knee arthroplasties. DATA REPOSITORY: RADIATION DOSE DELIVERED:
== END 2024-11-30 11:52 | disposition home or self-care (01) ==
LOC: DIORS 11:51
PROVIDERS: PCP Nurse Practitioner Adult Health; Visit Provider Student in an Organized Health Care Education/Training Program
DX: Z96.652 Presence of left artificial knee joint (principal)
CPT/HCPCS: 73560; 77073